=== PATIENT | male | born 1945 | race Caucasian/White ===

== ENCOUNTER 2016-07-05 18:49 | Inpatient (IN) | payer MEDICARE ==
[2016-07-05] MEDS ORDERED: ASPIRIN 81 MG CHEW PO STA (19:42)
[2016-07-05] MEDS ORDERED: NITROGLYCERIN OINT 1 INCH/GM PACKET TOPICAL STA (19:42)
[2016-07-05] MEDS ORDERED: ONDANSETRON 4 MG/2 ML VIAL IVP STA (19:42)
[2016-07-05 19:59] LABS: Basophils % (A) 0 %; CH 31.7; CHCM 33.8; Eosinophils # (A) 0.3 k/uL (0-0.7); Eosinophils % (A) 2 %; HCT 42.2 % (39.0-53.0); HDW 2.45; HGB 14.2 gm/dL (13.0-17.5); Luc # (Auto) 0.12; Luc % (Auto) 1; Lymphocytes # (A) 1.4 k/uL (1.0-4.8); Lymphocytes % (A) 12 %; MCH 31.7 pg (25.0-35.0); MCHC 33.7 g/dL (31.0-37.0); MCV 94.3 fL (80.0-100.0); Mean Platelet Volume 7.2; Monocytes # (A) 0.7 k/uL (0-1.0); Monocytes % (A) 6 %; Neutrophils # (A) 8.9 k/uL (1.3-7.7); Neutrophils % (A) 78 %; RBC 4.48 m/uL (4.30-5.90); RDW 12.9 % (11.5-15.5); WBC 11.4 k/uL (3.8-10.6); WBC (Perox) 11.66
[2016-07-05 20:09] LABS: ALT 57 U/L (21-72); AST 34 U/L (17-59); Alkaline Phosphatase 91 U/L (38-126); Anion Gap 8 mmol/L; Blood Urea Nitrogen 17 mg/dL (9-20); Carbon Dioxide 28 mmol/L (22-30); Chloride 105 mmol/L (98-107); Glucose 85 mg/dL (74-99); Non-African American GFR(MDRD) >60 (>60 ml/min/1.73 sqM); Potassium 3.9 mmol/L (3.5-5.1); Sodium 141 mmol/L (137-145); Total Bilirubin 0.8 mg/dL (0.2-1.3); Total Protein 6.3 g/dL (6.3-8.2)
[2016-07-05 20:13] LABS: Creatine Kinase 87 U/L (55-170)
[2016-07-05 20:15] LABS: Partial Thromboplastin Time 30.4 sec (22.0-30.0); Prothrombin Time 28.8 sec (9.0-12.0)
--- NOTE | 2016-07-05 20:23 | XR ---
EXAMINATION TYPE: XR chest 2V DATE OF EXAM: 07/05/2016 8:15 PM COMPARISON: 05/26/2016 HISTORY: Chest pain TECHNIQUE: Frontal and lateral views of the chest are obtained. FINDINGS: There is no heart failure nor confluent pneumonic infiltrate. There are no hilar masses. T here are chest leads. Costophrenic angles are clear. IMPRESSION: No active cardiopulmonary disease. Normal heart. No change.
[2016-07-05 20:25] LABS: Creatine Kinase MB 0.9 ng/mL (0.0-2.4); Troponin I <0.012 ng/mL (0.000-0.034)
[2016-07-05] MEDS ORDERED: ACETAMINOPHEN TAB 325 MG TAB PO PRN (20:56)
[2016-07-05] MEDS ORDERED: NITROGLYCERIN SL TABS 0.4 MG TAB SUBLINGUAL PRN (20:56)
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
[2016-07-05] MEDS: FUROSEMIDE 10 MG/ML 4 ML VIAL IV SCH (21:19)
[2016-07-05] MEDS: TAMSULOSIN 0.4 MG CAP.ER.24H PO SCH (21:19)
[2016-07-05] MEDS: WARFARIN 7.5 MG TAB PO SCH (21:30)
[2016-07-05] MEDS: METOPROLOL TARTRATE 50 MG TAB PO SCH (23:29)
[2016-07-05] MEDS: CARVEDILOL 3.125 MG TAB PO SCH (23:29)
[2016-07-06] MEDS: NITROGLYCERIN OINT 1 INCH/GM PACKET TOPICAL SCH ×4 (02:46→17:59)
[2016-07-06 02:48] LABS: Creatine Kinase 71 U/L (55-170)
[2016-07-06 03:02] LABS: Creatine Kinase MB 0.7 ng/mL (0.0-2.4); Troponin I <0.012 ng/mL (0.000-0.034)
[2016-07-06 07:50] LABS: Creatine Kinase 79 U/L (55-170)
[2016-07-06 07:58] LABS: Cholesterol 117 mg/dL (<200); HDL Cholesterol 42 mg/dL (40-60); Triglycerides 62 mg/dL (<150)
[2016-07-06 08:01] LABS: Creatine Kinase MB 0.6 ng/mL (0.0-2.4); Troponin I <0.012 ng/mL (0.000-0.034)
[2016-07-06] MEDS: METOPROLOL TARTRATE 50 MG TAB PO SCH ×3 (08:04→21:26)
[2016-07-06] MEDS: ASPIRIN 325 MG TAB PO SCH (08:04)
[2016-07-06] MEDS: LISINOPRIL 20 MG TAB PO SCH (08:04)
[2016-07-06] MEDS: CARVEDILOL 3.125 MG TAB PO SCH ×2 (08:04→16:19)
[2016-07-06] MEDS: ATORVASTATIN 80 MG TAB PO SCH (08:05)
[2016-07-06] MEDS: POTASSIUM CHLORIDE ER 20 MEQ TAB.ER PO SCH (08:05)
[2016-07-06] MEDS: FUROSEMIDE 10 MG/ML 4 ML VIAL IV SCH ×2 (08:05→21:26)
[2016-07-06] MEDS: CALCIUM CARBONATE 500 MG CHEWABLE PO SCH (12:55)
[2016-07-06] MEDS: MULTIVITAMINS, THERA 1 EACH TAB PO SCH (12:55)
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
[2016-07-06 16:41] LABS: INR 2.7 (<1.1); Prothrombin Time 25.9 sec (9.0-12.0)
[2016-07-06] MEDS: WARFARIN 7.5 MG TAB PO SCH (18:00)
[2016-07-06] MEDS: TAMSULOSIN 0.4 MG CAP.ER.24H PO SCH (21:26)
[2016-07-07] MEDS: NITROGLYCERIN OINT 1 INCH/GM PACKET TOPICAL SCH ×3 (01:59→16:14)
[2016-07-07 07:38] LABS: Basophils % (A) 0 %; CH 31.3; CHCM 32.6; Eosinophils # (A) 0.2 k/uL (0-0.7); Eosinophils % (A) 3 %; HDW 2.43; HGB 15.1 gm/dL (13.0-17.5); Luc # (Auto) 0.18; Luc % (Auto) 2; Lymphocytes # (A) 1.2 k/uL (1.0-4.8); Lymphocytes % (A) 15 %; MCH 31.6 pg (25.0-35.0); MCHC 32.7 g/dL (31.0-37.0); MCV 96.6 fL (80.0-100.0); Mean Platelet Volume 6.8; Monocytes # (A) 0.5 k/uL (0-1.0); Monocytes % (A) 7 %; Neutrophils % (A) 73 %; RBC 4.76 m/uL (4.30-5.90); WBC 8.2 k/uL (3.8-10.6); WBC (Perox) 8.48
[2016-07-07 07:46] LABS: INR 3.6 (<1.1); Prothrombin Time 35.5 sec (9.0-12.0)
[2016-07-07 07:50] LABS: Anion Gap 9 mmol/L; Blood Urea Nitrogen 18 mg/dL (9-20); Calcium 8.6 mg/dL (8.4-10.2); Carbon Dioxide 29 mmol/L (22-30); Chloride 106 mmol/L (98-107); Glucose 85 mg/dL (74-99); Non-African American GFR(MDRD) >60 (>60 ml/min/1.73 sqM); Potassium 4.1 mmol/L (3.5-5.1); Sodium 144 mmol/L (137-145)
[2016-07-07] MEDS ORDERED: SODIUM CHLORIDE 0.9% 1,000 ML IV SCH ×2 (12:15→14:45)
[2016-07-07] MEDS: LISINOPRIL 20 MG TAB PO SCH (12:39)
[2016-07-07] MEDS: MAGNESIUM OXIDE 400 MG TAB PO SCH (12:39)
[2016-07-07] MEDS: ATORVASTATIN 80 MG TAB PO SCH (12:39)
[2016-07-07] MEDS: SPIRONOLACTONE 25 MG TAB PO SCH (12:39)
[2016-07-07] MEDS: SOTALOL 80 MG TAB PO SCH ×2 (12:39→21:51)
[2016-07-07] MEDS: CALCIUM CARBONATE 500 MG CHEWABLE PO SCH (12:39)
[2016-07-07] MEDS: MULTIVITAMINS, THERA 1 EACH TAB PO SCH (12:39)
--- NOTE | 2016-07-07 12:46 | P.PN ---
Subjective Principal diagnosis: Chest pain Patient is a 71-year-old male, patient of Dr. Asher Murcia in the outpatient setting, with medical history significant for chronic atrial fibrillation/flutter with previous cardioversion, coronary artery disease with stent placement 3, hyperlipidemia, hypertension, systolic heart failure, osteoarthritis, BPH, and myocardial infarction in 2013. Patient presenting to the emergency department with complaints of acute chest pain that started around 6 PM while patient was sitting down. Patient describes chest pain as pressure, radiating to his bilateral arms and neck, associated with shortness of breath, nausea, lightheadedness, and dizziness. According to patient, he is scheduled for cardioversion next week by Dr. Michaels. Patient states he had a negative stress test one week ago. Chest x-ray in the emergency department negative for acute cardiopulmonary process. EKG with evidence of atrial fibrillation with rapid ventricular response heart rate 103. Troponins negative 3. INR 2.5. 07/07/2016: Patient is feeling well. Denies chills, fevers, nausea, vomiting, shortness of breath, chest pain, abdominal pain, numbness or tingling. Patient is urinating without difficulty. INR 3.6. Afebrile. Hemodynamically stable. Objective - Vital Signs Vital signs: Vital Signs Temp 97.5 F L 07/07/16 08:00 Pulse 61 07/07/16 08:00 Resp 16 07/07/16 08:00 BP 118/65 07/07/16 08:00 Pulse Ox 92 L 07/07/16 08:00 Intake & Output 07/06/16 07/07/16 07/07/16 18:59 06:59 18:59 Intake Total 200 Balance 200 Weight 124.5 kg Intake: Oral 200 Other: Voiding Method Toilet Toilet Toilet # Voids 0 - Exam GENERAL: Pt awake and alert, well-appearing, well-nourished, and in no acute distress. HEAD: Atraumatic, normocephalic. EYES: Pupils equal and round. ENT: Moist mucous membranes. NECK:Supple without lymphadenopathy or JVD. LUNGS: Breath sounds clear to auscultation bilaterally. HEART: Heart S1, S2, no S3 or S4. Irregularly irregular. No murmurs, rubs or gallops. ABDOMEN: Soft, obese, nontender, nondistended, normoactive bowel sounds. No guarding, no rebound. No masses or organomegaly appreciated. EXTREMITIES: 1+ peripheral pulses. 1+ edema to bilateral lower extremities. No calf tenderness. NEUROLOGICAL: Pt oriented x 3. Cranial nerves II through XII grossly intact. Strength and sensation grossly intact. PSYCH: Normal mood, normal affect. SKIN: Warm, dry, intact. Normal turgor. No rashes or lesions. - Labs CBC & Chem 7: 07/07/16 06:57 07/07/16 06:57 Labs: Abnormal Lab Results - Last 24 Hours (Table) 07/06/16 07/07/16 Range/Units 07:03 06:57 PT 25.9 H 35.5 H (9.0-12.0) sec Assessment and Plan Plan: Impression and plan: 1. Chest pain, present on admission. Cardiology consult in place, recommendations pending. Continue cardiac monitoring. 2. Persistent atrial fibrillation. Continue Coumadin for anticoagulation. INR therapeutic at 3.5. 3. Systolic congestive heart failure. Last echocardiogram with EF between 45- 50%. Continue Imdur. Continue Lasix and supplement potassium. 3. Coronary artery disease with stent placement 3. Continue aspirin and Plavix. 4. Hyperlipidemia. Continue Lipitor. 5. Hypertension. Continue lisinopril. Continue metoprolol. 6. History of myocardial infarction. 7. History of skin cancer. 8. History of nicotine dependence. 9. History of remote EtOH consumption. 9. BPH. Continue Flomax. The above impression and plan have been discussed and directed by Dr. Murcia. Germaine MEEKS acting as scribe for Dr. Murcia.
--- NOTE | 2016-07-07 13:43 | CONS ---
DATE OF CONSULTATION: This is a patient of Dr. Murcia and Dr. Lamb who presented with chest discomfort that lasted for about 10 minutes or so across his chest. He has also been complaining of increasing shortness of breath. His 3 sets of cardiac enzymes have been normal. EKG showed atrial fibrillation. He is awaiting electrical cardioversion in early July. Past history of atrial fibrillation, status post cardioversion, he remained in sinus rhythm only for 14 days. He has very symptomatic atrial fibrillation and cannot even walk up to his mailbox without having to stop numerous times, but he is in normal rhythm. He has good amount of energy and does not complain of shortness of breath. He recently underwent a stress test by Dr. Lamb after he got discharged in May and I spoke to Dr. Lamb. The stress test was normal. He has known past history of known coronary artery disease, status post coronary stenting of the distal RCA in the past. He also has hypertension. He is on Zestril. REVIEW OF SYSTEMS: No fever, chills, rigors. No cough or expectoration. No nausea, vomiting or diarrhea. No hematuria or dysuria. No strokes or seizures. No skin lesions or musculoskeletal complaints. ALLERGIES: No known drug allergies. PAST SURGICAL HISTORY: Cardiac catheterization. Labs were reviewed. His hemoglobin is normal, white count is normal. Electrolytes are normal. Potassium is normal, cardiac enzymes are normal. Magnesium is 2.0. A 12-lead ECG shows atrial fibrillation with a mildly increased heart rate at rest. Medications are reviewed. He is taking metoprolol and carvedilol, but he is also on appropriate treatment for coronary artery disease and atherosclerosis. IMPRESSION: 1. Chest discomfort, brief with no ST-segment abnormalities and normal cardiac enzymes x3 and a normal stress test, very recently. 2. Very symptomatic atrial fibrillation despite a reasonable rate control, persistent. 3. Coronary artery disease, status post coronary artery stenting several years back. SUGGEST: Stop carvedilol, change metoprolol to 50 mg twice a day, start sotalol 80 mg twice a day, monitor on telemetry for the next 3 to 5 days while on sotalol. Tomorrow, cardioversion will be performed by Dr. Lamb. Slow-Mag and Aldactone have been added. Aspirin 81 mg a day, continue statins and continue lisinopril. Nitro paste has been discontinued. Continue Coumadin. His INR's are therapeutic.
[2016-07-07] MEDS: ASPIRIN 325 MG TAB PO SCH (16:13)
[2016-07-07] MEDS: METOPROLOL TARTRATE 50 MG TAB PO SCH ×2 (16:13→21:51)
[2016-07-07] MEDS: CARVEDILOL 3.125 MG TAB PO SCH (16:13)
[2016-07-07] MEDS: FUROSEMIDE 10 MG/ML 4 ML VIAL IV SCH (16:13)
[2016-07-07] MEDS: POTASSIUM CHLORIDE ER 20 MEQ TAB.ER PO SCH (16:14)
[2016-07-07] MEDS: WARFARIN 7.5 MG TAB PO SCH (18:22)
[2016-07-07] MEDS: TAMSULOSIN 0.4 MG CAP.ER.24H PO SCH (21:51)
[2016-07-08 06:24] LABS: Basophils % (A) 0 %; CH 31.8; CHCM 33.2; Eosinophils # (A) 0.3 k/uL (0-0.7); Eosinophils % (A) 4 %; HDW 2.43; Luc # (Auto) 0.14; Luc % (Auto) 2; Lymphocytes # (A) 1.3 k/uL (1.0-4.8); Lymphocytes % (A) 18 %; MCH 30.8 pg (25.0-35.0); MCHC 31.9 g/dL (31.0-37.0); MCV 96.4 fL (80.0-100.0); Mean Platelet Volume 7.1; Monocytes # (A) 0.6 k/uL (0-1.0); Monocytes % (A) 8 %; Neutrophils # (A) 5.2 k/uL (1.3-7.7); Neutrophils % (A) 69 %; RBC 4.57 m/uL (4.30-5.90); WBC 7.6 k/uL (3.8-10.6)
[2016-07-08 06:34] LABS: INR 3.9 (<1.1); Prothrombin Time 38.2 sec (9.0-12.0)
[2016-07-08 06:41] LABS: Anion Gap 9 mmol/L; Blood Urea Nitrogen 20 mg/dL (9-20); Calcium 8.7 mg/dL (8.4-10.2); Carbon Dioxide 26 mmol/L (22-30); Chloride 107 mmol/L (98-107); Glucose 86 mg/dL (74-99); Non-African American GFR(MDRD) >60 (>60 ml/min/1.73 sqM); Potassium 4.3 mmol/L (3.5-5.1); Sodium 142 mmol/L (137-145)
[2016-07-08] MEDS: BENZOCAINE SPRAY 100 APPLIC/CAN MUCOUS MEM ONE ×3 (07:23→07:34)
[2016-07-08] MEDS ORDERED: LIDOCAINE 1% INJ 10MG/ML (20 ML MDV) ONE (07:29)
[2016-07-08] MEDS ORDERED: PROPOFOL 10 MG/ML 20 ML VIAL IV ONE (07:29)
[2016-07-08] MEDS ORDERED: MIDAZOLAM 2 MG/2 ML VIAL ONE (07:29)
[2016-07-08] MEDS ORDERED: LACTATED RINGERS 1,000 ML IV ONE (07:31)
[2016-07-08] MEDS: FUROSEMIDE 40 MG TAB PO SCH (10:10)
[2016-07-08] MEDS: LISINOPRIL 20 MG TAB PO SCH (10:10)
[2016-07-08] MEDS: ATORVASTATIN 80 MG TAB PO SCH (10:10)
[2016-07-08] MEDS: ASPIRIN 81 MG CHEW PO SCH (10:10)
[2016-07-08] MEDS: MAGNESIUM OXIDE 400 MG TAB PO SCH (10:11)
[2016-07-08] MEDS: METOPROLOL TARTRATE 50 MG TAB PO SCH ×2 (10:11→23:39)
[2016-07-08] MEDS: SOTALOL 80 MG TAB PO SCH ×2 (10:12→20:25)
[2016-07-08] MEDS: SPIRONOLACTONE 25 MG TAB PO SCH (10:13)
[2016-07-08] MEDS: MULTIVITAMINS, THERA 1 EACH TAB PO SCH (12:07)
[2016-07-08] MEDS: SODIUM CHLORIDE 0.9% 1,000 ML IV SCH (12:09)
[2016-07-08] MEDS: CALCIUM CARBONATE 500 MG CHEWABLE PO SCH (12:09)
--- NOTE | 2016-07-08 13:40 | P.PN ---
Subjective Principal diagnosis: Chest pain Patient is a 71-year-old male, patient of Dr. Asher Murcia in the outpatient setting, with medical history significant for chronic atrial fibrillation/flutter with previous cardioversion, coronary artery disease with stent placement 3, hyperlipidemia, hypertension, systolic heart failure, osteoarthritis, BPH, and myocardial infarction in 2013. Patient presenting to the emergency department with complaints of acute chest pain that started around 6 PM while patient was sitting down. Patient describes chest pain as pressure, radiating to his bilateral arms and neck, associated with shortness of breath, nausea, lightheadedness, and dizziness. According to patient, he is scheduled for cardioversion next week by Dr. Michaels. Patient states he had a negative stress test one week ago. Chest x-ray in the emergency department negative for acute cardiopulmonary process. EKG with evidence of atrial fibrillation with rapid ventricular response heart rate 103. Troponins negative 3. INR 2.5. 07/07/2016: Patient is feeling well. Denies chills, fevers, nausea, vomiting, shortness of breath, chest pain, abdominal pain, numbness or tingling. Patient is urinating without difficulty. INR 3.6. Afebrile. Hemodynamically stable. 07/08/2016: Patient is evaluated on selective care unit. Patient is status post successful cardioversion and ROSEANN this morning. Patient states he feels better already. Denies chills, fevers, nausea, vomiting, shortness of breath, chest pain, abdominal pain, numbness or tingling. Patient is urinating without difficulty. INR 3.9. Afebrile. Hemodynamically stable. Objective - Vital Signs Vital signs: Vital Signs Temp 98.2 F 07/08/16 09:00 Pulse 56 L 07/08/16 11:59 Resp 16 07/08/16 11:59 BP 106/63 07/08/16 11:59 Pulse Ox 95 07/08/16 11:59 Intake & Output 07/07/16 07/08/16 07/08/16 18:59 06:59 18:59 Intake Total 120 Balance 120 Intake: Oral 120 Other: # Voids 1 # Bowel Movements 0 - Exam GENERAL: Pt awake and alert, well-appearing, well-nourished, and in no acute distress. HEAD: Atraumatic, normocephalic. EYES: Pupils equal and round. ENT: Moist mucous membranes. NECK:Supple without lymphadenopathy or JVD. LUNGS: Breath sounds clear to auscultation bilaterally. HEART: Heart S1, S2, no S3 or S4. Regular rate and rhythm. No murmurs, rubs or gallops. ABDOMEN: Soft, obese, nontender, nondistended, normoactive bowel sounds. No guarding, no rebound. No masses or organomegaly appreciated. EXTREMITIES: 1+ peripheral pulses. 1+ edema to bilateral lower extremities. No calf tenderness. NEUROLOGICAL: Pt oriented x 3. Cranial nerves II through XII grossly intact. Strength and sensation grossly intact. PSYCH: Normal mood, normal affect. SKIN: Warm, dry, intact. Normal turgor. No rashes or lesions. - Labs CBC & Chem 7: 07/08/16 05:58 07/08/16 05:58 Assessment and Plan Plan: Impression and plan: 1. Chest pain, present on admission, resolved. Cardiology consult in place, recommendations noted. Continue cardiac monitoring. 2. Persistent atrial fibrillation, present on admission, status post ROSEANN and cardioversion on 07/08/2016. Patient currently in normal sinus rhythm. Continue sotalol. Patient to remain on telemetry for next 3-5 days per cardiology while patient is on sotalol. INR 3.9. Will defer Coumadin dosing to cardiology. 3. Systolic congestive heart failure. Last echocardiogram with EF between 45- 50%. Continue Imdur. Continue Lasix and supplement potassium. 3. Coronary artery disease with stent placement 3. Continue aspirin and Plavix. 4. Hyperlipidemia. Continue Lipitor. 5. Hypertension. Continue lisinopril. Continue metoprolol. 6. History of myocardial infarction. 7. History of skin cancer. 8. History of nicotine dependence. 9. History of remote EtOH consumption. 9. BPH. Continue Flomax. The above impression and plan have been discussed and directed by Dr. Murcia. Germaine MEEKS acting as scribe for Dr. Murcia.
[2016-07-08] MEDS: WARFARIN 7.5 MG TAB PO SCH (16:39)
[2016-07-08] MEDS: TAMSULOSIN 0.4 MG CAP.ER.24H PO SCH (20:25)
[2016-07-09 07:38] LABS: Basophils % (A) 1 %; CH 31.7; CHCM 33.4; Eosinophils # (A) 0.2 k/uL (0-0.7); Eosinophils % (A) 2 %; HCT 43.9 % (39.0-53.0); HDW 2.42; HGB 14.3 gm/dL (13.0-17.5); Luc # (Auto) 0.13; Luc % (Auto) 1; Lymphocytes # (A) 1.5 k/uL (1.0-4.8); Lymphocytes % (A) 16 %; MCH 31.2 pg (25.0-35.0); MCHC 32.6 g/dL (31.0-37.0); MCV 95.6 fL (80.0-100.0); Mean Platelet Volume 7.6; Monocytes # (A) 0.7 k/uL (0-1.0); Monocytes % (A) 8 %; Neutrophils # (A) 6.3 k/uL (1.3-7.7); Neutrophils % (A) 72 %; RBC 4.59 m/uL (4.30-5.90); WBC 8.8 k/uL (3.8-10.6); WBC (Perox) 9.07
[2016-07-09 07:41] LABS: Anion Gap 10 mmol/L; Blood Urea Nitrogen 19 mg/dL (9-20); Carbon Dioxide 27 mmol/L (22-30); Chloride 104 mmol/L (98-107); Glucose 93 mg/dL (74-99); Non-African American GFR(MDRD) >60 (>60 ml/min/1.73 sqM); Potassium 4.7 mmol/L (3.5-5.1); Sodium 141 mmol/L (137-145)
[2016-07-09 07:47] LABS: INR 2.9 (<1.1)
[2016-07-09] MEDS: ATORVASTATIN 80 MG TAB PO SCH (09:56)
[2016-07-09] MEDS: LISINOPRIL 20 MG TAB PO SCH (09:56)
[2016-07-09] MEDS: FUROSEMIDE 40 MG TAB PO SCH (09:56)
[2016-07-09] MEDS: ASPIRIN 81 MG CHEW PO SCH (09:56)
[2016-07-09] MEDS: SOTALOL 80 MG TAB PO SCH ×2 (09:57→20:00)
[2016-07-09] MEDS: MAGNESIUM OXIDE 400 MG TAB PO SCH (09:57)
[2016-07-09] MEDS: SPIRONOLACTONE 25 MG TAB PO SCH (09:57)
[2016-07-09] MEDS: METOPROLOL TARTRATE 50 MG TAB PO SCH (09:57)
[2016-07-09] MEDS: SODIUM CHLORIDE 0.9% 1,000 ML IV SCH (10:21)
--- NOTE | 2016-07-09 11:01 | PN ---
Mr. Hatch is doing well. He feels a lot better. He is able to walk up and down the hallway without experiencing any shortness of breath. Yesterday he was cardioverted and he is on sotalol 80 mg twice daily. However, he is also on metoprolol 50 mg twice daily and his heart rate is in the 50s, but more importantly, the 12-lead ECG shows that his NM is fairly prolonged. Therefore, I am going to stop metoprolol today, but continue sotalol 80 mg twice daily. He denies any chest discomfort, dizziness, lightheadedness or palpitations. On telemetry prior to starting sotalol, he had a long run of nonsustained VT asymptomatic. Blood pressure 117/63 mmHg, pulse rate in the 50s and 60s, afebrile, 97 degrees Fahrenheit. Head and neck examination is normal. Breath sounds are clear. Equal air entry bilaterally. No rhonchi. No crackles. Heart sounds S1 and S2 are normal. No murmurs. No gallop. S1 is normal. S2 is normal. Abdomen is soft. He has central obesity. Extremities are warm. No edema. IMPRESSION: 1. Persistent symptomatic atrial fibrillation despite adequate rate control. The patient is anticoagulated for stroke prevention. 2. Coronary artery disease, status post coronary artery stenting several years back. Recent stress test was normal according to Dr. Lamb. 3. Nonsustained ventricular tachycardia. 4. Mild sinus bradycardia and prolonged NM interval. SUGGEST: Stop metoprolol. Continue sotalol 80 mg twice daily. I will not increase his sotalol any further. Continue spironolactone 50 mg daily. Continue magnesium oxide 400 mg daily. Continue Lasix 40 mg daily. Continue atorvastatin 80 mg daily along with aspirin and continue lisinopril 20 mg daily. Anticoagulation to continue. We will monitor him until Monday while administering sotalol and watch his ( ). His 12-lead ECG was reviewed today and his absolute QT interval is 440 and 480 ms with heart rate in the 50s. Daily labs.
[2016-07-09] MEDS: MULTIVITAMINS, THERA 1 EACH TAB PO SCH (11:23)
[2016-07-09] MEDS: CALCIUM CARBONATE 500 MG CHEWABLE PO SCH (11:23)
[2016-07-09] MEDS: WARFARIN 7.5 MG TAB PO SCH (16:58)
[2016-07-09] MEDS: TAMSULOSIN 0.4 MG CAP.ER.24H PO SCH (20:00)
--- NOTE | 2016-07-09 20:31 | PN ---
DATE OF SERVICE: 07/09/2016 I am covering for Dr. Murcia. This 71-year-old gentleman admitted with chest pain also had persistent atrial fibrillation. The patient had ROSEANN and cardioversion. The patient also had ventricular tachycardia. The patient being closely monitored. Cardiology is following the patient closely. started he patient on sotalol at this time. No chest pain. No palpitations. On exam, alert and oriented x3. Pulse is 52, blood pressure 130/59, respiratory rate 16. Temperature 97.6, pulse ox 93% on room air. HEENT: Conjunctivae normal. NECK: No jugular venous distention. CARDIOVASCULAR: S1, S2 muffled. RESPIRATORY: Breath sounds diminished at the bases. No rhonchi, no crackles. ABDOMEN: Soft, nontender. Nontender. Obese. No mass palpable. LYMPHATICS: No lymph nodes palpable in the neck, axillae or groin. CENTRAL NERVOUS SYSTEM: No focal deficits. LABS at this time: CBC within normal limits. INR 2.9. ASSESSMENT: 1. Chest pain, possible unstable angina, present on admission. 2. Atrial fibrillation with persistent status post ROSEANN and cardioversion. 3. Congestive heart failure with chronic systolic dysfunction, ejection fraction 45 to 50%. 4. Coronary artery disease, stent placement. 5. Hyperlipidemia. 6. Hypertension. 7. History of myocardial infarction. 8. History of skin cancer. 9. History of nicotine dependence. 10. Remote history of ETOH. 11. History of benign prostatic hypertrophy. 12. Coumadin monitoring. RECOMMENDATIONS AND DISCUSSION: In this 71-year-old gentleman who presented with multiple complex medical issues, we will monitor the patient closely. Continue the current medications and continue symptomatic treatment. Otherwise, recommend repeat labs. Closely follow with cardiology and continue with Betapace. Guarded prognosis because of multiple complex medical issues. Further recommendations to follow. MTDD
[2016-07-10 06:45] LABS: Basophils % (A) 0 %; CH 31.5; CHCM 31.6; Eosinophils # (A) 0.3 k/uL (0-0.7); Eosinophils % (A) 3 %; HDW 2.35; HGB 14.8 gm/dL (13.0-17.5); Luc # (Auto) 0.19; Luc % (Auto) 2; Lymphocytes # (A) 1.4 k/uL (1.0-4.8); Lymphocytes % (A) 17 %; MCH 32.2 pg (25.0-35.0); MCHC 32.2 g/dL (31.0-37.0); MCV 100.1 fL (80.0-100.0); Mean Platelet Volume 7.4; Monocytes # (A) 0.8 k/uL (0-1.0); Monocytes % (A) 9 %; Neutrophils # (A) 5.9 k/uL (1.3-7.7); Neutrophils % (A) 69 %; RDW 12.9 % (11.5-15.5); WBC 8.5 k/uL (3.8-10.6); WBC (Perox) 8.54
[2016-07-10 07:17] LABS: Anion Gap 11 mmol/L; Blood Urea Nitrogen 19 mg/dL (9-20); Carbon Dioxide 21 mmol/L (22-30); Chloride 111 mmol/L (98-107); Glucose 89 mg/dL (74-99); Magnesium 2.2 mg/dL (1.6-2.3); Non-African American GFR(MDRD) >60 (>60 ml/min/1.73 sqM); Potassium 4.5 mmol/L (3.5-5.1); Sodium 143 mmol/L (137-145)
[2016-07-10] MEDS: ATORVASTATIN 80 MG TAB PO SCH (07:56)
[2016-07-10] MEDS: LISINOPRIL 20 MG TAB PO SCH (07:56)
[2016-07-10] MEDS: FUROSEMIDE 40 MG TAB PO SCH (07:56)
[2016-07-10] MEDS: ASPIRIN 81 MG CHEW PO SCH (07:56)
[2016-07-10] MEDS: SPIRONOLACTONE 25 MG TAB PO SCH (07:57)
[2016-07-10] MEDS: SOTALOL 80 MG TAB PO SCH ×2 (07:57→21:10)
[2016-07-10] MEDS: MAGNESIUM OXIDE 400 MG TAB PO SCH (07:57)
[2016-07-10 09:47] LABS: INR 2.3 (<1.1)
[2016-07-10] MEDS: SODIUM CHLORIDE 0.9% 1,000 ML IV SCH (10:19)
[2016-07-10] MEDS: CALCIUM CARBONATE 500 MG CHEWABLE PO SCH (12:02)
[2016-07-10] MEDS: MULTIVITAMINS, THERA 1 EACH TAB PO SCH (12:02)
--- NOTE | 2016-07-10 14:16 | PN ---
Mr. Asher Hatch is a 71-year-old male patient with known coronary artery disease, status post stenting in the past who presented with very symptomatic atrial fibrillation and some chest discomfort. He underwent electrical cardioversion. I started him on sotalol. Subsequently, I had to stop metoprolol because of bradycardia and prolonged ND interval and continue sotalol 80 mg twice daily. Yesterday his QT interval was within normal limits. Today his QT interval definitely appears prolonged and his about absolute QT interval was around 500 to 520 ms. Current QT interval is shorter but the GT interval definitely appears long. He has not had any ventricular arrhythmias after starting sotalol, however, before starting sotalol he did have a long run of nonsustained VT. On examination, his blood pressure is 133/65 mmHg. His respirations are normal. His pulse rate is in the 50s. He is afebrile, 97.1 degrees Fahrenheit. Head and neck examination is normal. Heart sounds are normal. Lungs are clear on auscultation. EXTREMITIES: Warm. No edema. IMPRESSION: 1. Persistent symptomatic atrial fibrillation. He has failed electrical cardioversion in the past, underwent repeat electrical cardioversion, sotalol maintained sinus rhythm. 2. Sick sinus syndrome with sinus bradycardia, necessitating discontinuation of beta blockers. 3. Slight prolongation of the QT interval on sotalol 80 mg twice daily. Therefore the dose of sotalol is being reduced to 40 mg twice daily. 4. Known coronary artery disease, status post coronary stenting and long run of nonsustained ventricular tachycardia prior to starting sotalol. SUGGEST: Low dose sotalol 40 mg twice daily. I will not increase any further. He will continue spironolactone and Slow-Mag. I think this gentleman will need a pacemaker just because his bradycardia. He understands that this will have no impact on his atrial fibrillation and he has very symptomatic atrial fibrillation and therefore an atrial fibrillation should definitely be considered.
[2016-07-10] MEDS: WARFARIN 7.5 MG TAB PO SCH (17:46)
--- NOTE | 2016-07-10 19:27 | PN ---
I am covering for Dr. Murcia. DATE OF SERVICE: 07/10/2016 This 71-year-old gentleman who was admitted with atrial fibrillation. Also had ROSEANN and cardioversion. Dr. Michaels from the cardiology is following the patient closely. Recommended was thought to have sick sinus syndrome or sinus bradycardia. The patient was being monitored and sotalol dose has been adjusted. The possible EP studies and pacemaker also being considered by Dr. Michaels. No chest pain. No palpitation. No fever at this time. On exam, alert and oriented times three. Pulse 59, blood pressure 133/64, respirations 18, temperature 97.1, pulse ox 97% on room air. HEENT: Conjunctivae normal. NECK: No jugular venous distention. CARDIOVASCULAR: S1, S2 muffled. RESPIRATORY: Breath sounds diminished at the bases. No rhonchi. No crackles. ABDOMEN: Soft. Obese, nontender. EXTREMITIES: Legs no edema. Nervous system: No focal deficits. Labs CBC within normal limits. INR 2.3. ASSESSMENT: 1. Chest pain, possible unstable angina, present on admission. 2. Atrial fibrillation persistent status post ROSEANN and cardioversion. 3. Congestive heart failure with chronic systolic dysfunction, ejection fraction 45% to 50%. 4. Coronary artery disease, stent placement. 5. Hyperlipidemia. 6. Hypertension. 7. History of myocardial infarction. 8. History of skin cancer. 9. History of nicotine dependence. 10. Remote history of ETOH. 11. History of benign prostatic hypertrophy. 12. Coumadin monitoring. RECOMMENDATIONS AND DISCUSSION: In this 71-year-old gentleman who presented with multiple complex medical issues, we will monitor the patient closely. Continue the current medications and continue with antiarrhythmic agents. Closely follow with cardiology. Further recommendations regarding EP studies per Cardiology. Discussed with the patient. Prognosis guarded and Dr. Murcia will follow. [facility]
[2016-07-10] MEDS: TAMSULOSIN 0.4 MG CAP.ER.24H PO SCH (21:10)
[2016-07-11 07:09] LABS: Basophils % (A) 0 %; CH 31.6; CHCM 32.9; Eosinophils # (A) 0.3 k/uL (0-0.7); Eosinophils % (A) 3 %; HDW 2.35; HGB 14.2 gm/dL (13.0-17.5); Luc % (Auto) 3; Lymphocytes # (A) 1.3 k/uL (1.0-4.8); Lymphocytes % (A) 16 %; MCH 31.3 pg (25.0-35.0); MCHC 32.4 g/dL (31.0-37.0); MCV 96.5 fL (80.0-100.0); Mean Platelet Volume 6.7; Monocytes # (A) 0.6 k/uL (0-1.0); Monocytes % (A) 8 %; Neutrophils # (A) 5.8 k/uL (1.3-7.7); Neutrophils % (A) 71 %; RBC 4.56 m/uL (4.30-5.90); RDW 12.9 % (11.5-15.5); WBC 8.2 k/uL (3.8-10.6); WBC (Perox) 8.58
[2016-07-11 07:14] LABS: INR 2.2 (<1.1); Prothrombin Time 21.1 sec (9.0-12.0)
[2016-07-11 07:25] LABS: Anion Gap 8 mmol/L; Blood Urea Nitrogen 17 mg/dL (9-20); Calcium 9.2 mg/dL (8.4-10.2); Carbon Dioxide 29 mmol/L (22-30); Chloride 106 mmol/L (98-107); Glucose 85 mg/dL (74-99); Non-African American GFR(MDRD) >60 (>60 ml/min/1.73 sqM); Potassium 4.5 mmol/L (3.5-5.1); Sodium 143 mmol/L (137-145)
[2016-07-11] MEDS: LISINOPRIL 20 MG TAB PO SCH (09:37)
[2016-07-11] MEDS: SPIRONOLACTONE 25 MG TAB PO SCH (09:38)
[2016-07-11] MEDS: SOTALOL 80 MG TAB PO SCH ×2 (09:38→20:15)
[2016-07-11] MEDS: MULTIVITAMINS, THERA 1 EACH TAB PO SCH (09:38)
[2016-07-11] MEDS: SODIUM CHLORIDE 0.9% 1,000 ML IV SCH (09:39)
[2016-07-11] MEDS: ASPIRIN 81 MG CHEW PO SCH (09:39)
[2016-07-11] MEDS: CALCIUM CARBONATE 500 MG CHEWABLE PO SCH (09:39)
[2016-07-11] MEDS: MAGNESIUM OXIDE 400 MG TAB PO SCH (09:39)
[2016-07-11] MEDS: ATORVASTATIN 80 MG TAB PO SCH (09:39)
[2016-07-11] MEDS: FUROSEMIDE 40 MG TAB PO SCH (09:39)
--- NOTE | 2016-07-11 10:21 | P.PN ---
Subjective Principal diagnosis: Chest pain Patient is a 71-year-old male, patient of Dr. Asher Murcia in the outpatient setting, with medical history significant for chronic atrial fibrillation/flutter with previous cardioversion, coronary artery disease with stent placement 3, hyperlipidemia, hypertension, systolic heart failure, osteoarthritis, BPH, and myocardial infarction in 2013. Patient presenting to the emergency department with complaints of acute chest pain that started around 6 PM while patient was sitting down. Patient describes chest pain as pressure, radiating to his bilateral arms and neck, associated with shortness of breath, nausea, lightheadedness, and dizziness. According to patient, he is scheduled for cardioversion next week by Dr. Michaels. Patient states he had a negative stress test one week ago. Chest x-ray in the emergency department negative for acute cardiopulmonary process. EKG with evidence of atrial fibrillation with rapid ventricular response heart rate 103. Troponins negative 3. INR 2.5. 07/07/2016: Patient is feeling well. Denies chills, fevers, nausea, vomiting, shortness of breath, chest pain, abdominal pain, numbness or tingling. Patient is urinating without difficulty. INR 3.6. Afebrile. Hemodynamically stable. 07/08/2016: Patient is evaluated on selective care unit. Patient is status post successful cardioversion and ROSEANN this morning. Patient states he feels better already. Denies chills, fevers, nausea, vomiting, shortness of breath, chest pain, abdominal pain, numbness or tingling. Patient is urinating without difficulty. INR 3.9. Afebrile. Hemodynamically stable. 07/11/2016: Patient is evaluated on selective care unit. Patient is feeling well. Denies dizziness, lightheadedness, nausea, vomiting, shortness of breath , or chest pain. Patient has been started on sotalol which is maintaining sinus rhythm. Beta blockers have been discontinued secondary to sinus bradycardia. Per cardiology note, patient may need a pacemaker secondary to episodes of bradycardia. Labs reviewed and stable. INR 2.2. Patient remains on Coumadin. Afebrile. Hemodynamically stable. Objective - Vital Signs Vital signs: Vital Signs Temp 97.4 F L 07/11/16 04:00 Pulse 62 07/11/16 08:00 Resp 17 07/11/16 08:00 BP 123/71 07/11/16 08:00 Pulse Ox 93 L 07/11/16 08:00 Intake & Output 07/10/16 07/11/16 07/11/16 18:59 06:59 18:59 Intake Total 600 1680 Output Total 500 Balance 100 1680 Weight 122.3 kg Intake: Intake, IV Titration 0 Amount Sodium Chloride 0.9% 1, 0 000 ml @ 20 mls/hr IV . Q24H LILIANA Rx#:[id number] Oral 600 1680 Output: Urine 500 Other: Voiding Method Toilet # Voids 2 4 - Exam GENERAL: Pt awake and alert, well-appearing, well-nourished, and in no acute distress. HEAD: Atraumatic, normocephalic. EYES: Pupils equal and round. ENT: Moist mucous membranes. NECK:Supple without lymphadenopathy or JVD. LUNGS: Breath sounds clear to auscultation bilaterally. HEART: Heart S1, S2, no S3 or S4. Regular rate and rhythm. No murmurs, rubs or gallops. ABDOMEN: Soft, obese, nontender, nondistended, normoactive bowel sounds. No guarding, no rebound. No masses or organomegaly appreciated. EXTREMITIES: 1+ peripheral pulses. No edema to bilateral lower extremities. No calf tenderness. NEUROLOGICAL: Pt oriented x 3. Cranial nerves II through XII grossly intact. Strength and sensation grossly intact. PSYCH: Normal mood, normal affect. SKIN: Warm, dry, intact. Normal turgor. No rashes or lesions. - Labs CBC & Chem 7: 07/11/16 06:43 07/11/16 06:43 Labs: Abnormal Lab Results - Last 24 Hours (Table) 07/11/16 Range/Units 06:43 PT 21.1 H (9.0-12.0) sec Assessment and Plan Plan: Impression and plan: 1. Chest pain, present on admission, resolved. Cardiology consult in place, recommendations noted. Continue cardiac monitoring. 2. Persistent atrial fibrillation, present on admission, status post ROSEANN and cardioversion on 07/08/2016. Patient currently in normal sinus rhythm. Continue sotalol. 3. Systolic congestive heart failure. Last echocardiogram with EF between 45- 50%. Continue Imdur. Continue Lasix and Aldactone. 4. Sick sinus syndrome with sinus bradycardia. Beta blockers a been discontinued. Per cardiology, patient will need pacemaker. 3. Coronary artery disease with stent placement 3. Continue aspirin. 4. Hyperlipidemia. Continue Lipitor. 5. Hypertension. Continue lisinopril. 6. History of myocardial infarction. 7. History of skin cancer. 8. History of nicotine dependence. 9. History of remote EtOH consumption. 9. BPH. Continue Flomax. Discharge plan: Possibly within next 24 hours, will look for cardiology recommendations. The above impression and plan have been discussed and directed by Dr. Murcia. Germaine MEEKS acting as scribe for Dr. Murcia.
--- NOTE | 2016-07-11 17:16 | PN ---
Asher Hatch is doing well. He is walking around in the hallways. His breathing is a lot better. His energy level is better. He has no chest discomfort. No dizziness or lightheadedness. His heart rates are in the 50s after stopping metoprolol succinate completely and reducing sotalol to 40 mg twice daily. His QT interval definitely has reduced by at least 40 to 60 ms after reducing the sotalol dose from 80 to 40 mg twice daily. His blood pressure is 117/66 mmHg and 134/65 mmHg. Respirations are normal. Breath sounds are normal. No rhonchi. No crackles. Heart sounds S1, S2 are normal ( ). Extremities are warm. No edema. No JVD. IMPRESSION: 1. Persistent symptomatic atrial fibrillation, status post electrical cardioversion, currently on sotalol 40 mg twice daily. The QT interval was greater than 500 ms on 80 mg twice daily; hence the dose was reduced. He is also on anticoagulation. 2. Sick sinus syndrome with sinus bradycardia necessitating discontinuation of metoprolol. 3. Sotalol 40 mg twice daily is being administered. The QT interval is about 480 ms now. 4. Known coronary disease, status post coronary artery stenting. Patient was admitted with chest discomfort that lasted for 10 to 15 minutes without any clear-cut evidence for myocardial injury and long runs of non-sustained ventricular tachycardia. SUGGEST: Continue sotalol 40 mg twice daily. Continue anticoagulation. Continue Slow-Mag and spironolactone. I had a very detailed discussion with the patient, his daughter and his . After he gets discharged, as long as his QT interval is stable, we will follow the following sequence of management: 1. I have spoken to Dr. Lamb regarding coronary angiography. I would wait for about a month, since he was just electrically cardioverted and we do not want to stop his anticoagulation now. 2. Subsequently I would proceed with a dual-chamber pacemaker implantation for him. 3. Thereafter, an atrial fibrillation ablation should be considered, since he has very symptomatic atrial fibrillation and cannot tolerate even small doses of sotalol without QT prolongation. The other option is amiodarone.
[2016-07-11] MEDS: WARFARIN 7.5 MG TAB PO SCH (17:27)
[2016-07-11] MEDS: TAMSULOSIN 0.4 MG CAP.ER.24H PO SCH (20:14)
[2016-07-12] MEDS: SODIUM CHLORIDE 0.9% 1,000 ML IV SCH (05:48)
[2016-07-12 06:27] LABS: Basophils % (A) 0 %; CH 31.8; CHCM 33.3; Eosinophils # (A) 0.2 k/uL (0-0.7); Eosinophils % (A) 3 %; HCT 45.5 % (39.0-53.0); HDW 2.36; HGB 14.6 gm/dL (13.0-17.5); Luc # (Auto) 0.22; Luc % (Auto) 3; Lymphocytes # (A) 1.5 k/uL (1.0-4.8); Lymphocytes % (A) 19 %; MCH 30.8 pg (25.0-35.0); MCHC 32.2 g/dL (31.0-37.0); MCV 95.8 fL (80.0-100.0); Mean Platelet Volume 6.7; Monocytes # (A) 0.6 k/uL (0-1.0); Monocytes % (A) 8 %; Neutrophils # (A) 5.5 k/uL (1.3-7.7); Neutrophils % (A) 68 %; RBC 4.74 m/uL (4.30-5.90); WBC 8.2 k/uL (3.8-10.6)
[2016-07-12 06:33] LABS: INR 2.3 (<1.1); Prothrombin Time 22.1 sec (9.0-12.0)
[2016-07-12 06:36] LABS: Anion Gap 9 mmol/L; Blood Urea Nitrogen 18 mg/dL (9-20); Calcium 9.3 mg/dL (8.4-10.2); Carbon Dioxide 27 mmol/L (22-30); Chloride 106 mmol/L (98-107); Glucose 88 mg/dL (74-99); Non-African American GFR(MDRD) >60 (>60 ml/min/1.73 sqM); Potassium 4.6 mmol/L (3.5-5.1); Sodium 142 mmol/L (137-145)
[2016-07-12] MEDS: ASPIRIN 81 MG CHEW PO SCH (09:26)
[2016-07-12] MEDS: ATORVASTATIN 80 MG TAB PO SCH (09:26)
[2016-07-12] MEDS: MAGNESIUM OXIDE 400 MG TAB PO SCH (09:26)
[2016-07-12] MEDS: FUROSEMIDE 40 MG TAB PO SCH (09:26)
[2016-07-12] MEDS: LISINOPRIL 20 MG TAB PO SCH (09:26)
[2016-07-12] MEDS: SPIRONOLACTONE 25 MG TAB PO SCH (09:28)
[2016-07-12] MEDS: SOTALOL 80 MG TAB PO SCH (09:28)
[2016-07-12 11:17] VITALS: BP 123/61; PULSE 55; RESP 22; TEMP 97.1
[2016-07-12] MEDS: CALCIUM CARBONATE 500 MG CHEWABLE PO SCH (13:04)
[2016-07-12] MEDS: MULTIVITAMINS, THERA 1 EACH TAB PO SCH (13:04)
--- NOTE | 2016-07-12 13:25 | P.PN ---
Progress Note - Text Patient is doing well. No dizziness no lightheadedness no chest discomfort no palpitations. His energy level has improved significantly after maintaining sinus rhythm I started him on sotalol 80 mg twice daily and he underwent electrical cardioversion thereafter successfully by Dr. Peguero He is on adequate granulation with Coumadin INRs have been therapeutic Prior to that he had a run of nonsustained ventricular tachycardia and is fairly long and he has known left ventricular ejection fraction of 45-50% with inferior basal wall motion automatically related to an old OR. Hence I chose sotalol rather than dofetilide However he was quite bradycardic and had a prolonged MI interval and therefore metoprolol succinate was discontinued despite the fact that he has cardio myopathy, ischemic in nature Recent stress test did not show any evidence for ischemia in June. In addition his absolute QT interval on sotalol was prolonged and just above 500 ms there the dose was reduced to 40 mg twice daily. Despite that he has maintained sinus rhythm On examination He is afebrile 97.1, pulse rate 55, respirations 18, blood pressure 123/61 mmHg Heart sounds are normal and regular No murmurs no gallops Breath sounds are normal no rhonchi no crackles Abdomen soft nontender Extremities are warm no edema Impression Persistent symptomatic atrial fibrillation with significant shortness of breath and tiredness and fatigue Significant improvement in energy level after electrical cardioversion despite the fact that he is bradycardic Absolute QT interval of about 500-520, on sotalol 80 mg twice day Sotalol dose reduced to 80 mg twice daily Coronary artery disease, old inferior basal OR Long episode of nonsustained VT on telemetry, documented No evidence for ischemia on stress testing Sinus bradycardia necessitating discontinuation of metoprolol succinate Prolonged MI interval of about 300 ms even on sotalol 40 mg grams twice daily Plan Discharge home today on sotalol 80 mg twice daily. QT interval is less than 480 ms No metoprolol succinate for now Continue anticoagulation with Coumadin Continue aspirin and atorvastatin Continue Lasix 40 mg daily along with lisinopril 20 mg daily and magnesium oxide 400 mg daily Continue spironolactone 50 mg daily Plan I had a detailed discussion with the patient and his and daughter Patient needs a permanent pacemaker because his MI interval was prolonged and he has significant sinus bradycardia on minimal doses of sotalol for AF management This is occurred despite stopping metoprolol I would implant a dual-chamber pacemaker but within ICD lead, since he has a long run of nonsustained ventricular tachycardia as well as mild ischemic cardio myopathy with inferior basal akinesis I will also schedule him for any of ablation afterwards It is quite likely this sotalol in such a small dose will not maintains sinus rhythm. He is very symptomatic during atrial fibrillation and benefits significantly from sinus rhythm in terms of his quality of life If he fails sotalol I will use amiodarone, not dofetilide, in small doses I will schedule his dual-chamber pacemaker with ICD lead instead of pacing lead within the month
--- NOTE | 2016-07-12 15:01 | P.DS ---
Providers Date of admission: 07/08/16 10:39 Expected date of discharge: 07/12/16 Attending physician: Asher Murcia Consults: Cardiology service Primary care physician: Asher Murcia [facility] Course: Patient is a 71-year-old male, patient of Dr. Asher Murcia in the outpatient setting, with medical history significant for chronic atrial fibrillation/flutter with previous failed cardioversion, coronary artery disease with stent placement 3, hyperlipidemia, hypertension, systolic heart failure, osteoarthritis, BPH, myocardial infarction in 2013, and negative stress test one week prior to admission. Patient presenting to the emergency department with complaints of acute chest pain. EKG on admission with evidence of atrial fibrillation with rapid ventricular response. Troponins negative 3. Patient was evaluated by Dr. Michaels from cardiology service and underwent successful cardioversion and ROSEANN. Patient had no further episodes of dizziness , lightheadedness, chest discomfort, or palpitations during hospital stay. Patient was started on sotalol 40 mg by mouth twice a day and metoprolol was discontinued secondary bradycardia. Per cardiology recommendations, patient will need a dual-chamber pacemaker with ICD lead within the next month followed by ablation at a later date. Patient was deemed stable for discharge to home with follow-up with cardiology and primary care service in the outpatient setting as directed. Discharge diagnoses: 1. Chest pain, present on admission, resolved. 2. Persistent atrial fibrillation, present on admission, status post ROSEANN and cardioversion on 07/08/2016. Patient currently in normal sinus rhythm. 3. Systolic congestive heart failure. 4. Sick sinus syndrome with sinus bradycardia. 3. Coronary artery disease with stent placement 3. 4. Hyperlipidemia. 5. Hypertension. 6. History of myocardial infarction. 7. History of skin cancer. 8. History of nicotine dependence. 9. History of remote EtOH consumption. 9. BPH. The above impression and plan have been discussed and directed by Dr. Murcia. Germaine MEEKS acting as scribe for Dr. Murcia. Pertinent Studies: Chest x-ray; EKG Procedures: ROSEANN; cardioversion Patient Condition at Discharge: Good Plan - Discharge Summary New Discharge Prescriptions: Furosemide Oral Soln [Lasix] 40 mg PO DAILY #1 cup Magnesium Oxide 400 mg PO DAILY #1 tablet Sotalol [Betapace] 40 mg PO BID #2 tablet Spironolactone [Aldactone] 50 mg PO DAILY #1 tab Discharge Medication List Atorvastatin [Lipitor] 80 mg PO DAILY 09/17/14 [History] Lisinopril [Prinivil] 20 mg PO DAILY 09/17/14 [History] Multivitamins, Thera [Multivitamin] 1 tab PO DAILY 09/17/14 [History] Aspirin 81 mg PO DAILY #30 chew 01/07/15 [Rx] Calcium 500mg 500 mg PO DAILY 05/26/16 [History] Tamsulosin HCl [Flomax] 0.4 mg PO HS 05/26/16 [History] Warfarin [Coumadin] 11.25 mg PO SUMOWETHSA 07/05/16 [History] Warfarin [Coumadin] 15 mg PO HS 07/05/16 [History] Furosemide Oral Soln [Lasix] 40 mg PO DAILY #1 cup 07/12/16 [Rx] Magnesium Oxide 400 mg PO DAILY #1 tablet 07/12/16 [Rx] Sotalol [Betapace] 40 mg PO BID #2 tablet 07/12/16 [Rx] Spironolactone [Aldactone] 50 mg PO DAILY #1 tab 07/12/16 [Rx] Follow up Appointment(s)/Referral(s): Asher Murcia DO [Primary Care Provider] - 1-2 days Ivan Lamb MD [STAFF PHYSICIAN] - 1 Week Patient Instructions/Handouts: Chest Pain (DC) Discharge Disposition: HOME SELF-CARE
--- NOTE | 2016-08-04 09:12 | ECHOT ---
DATE OF SERVICE: PROCEDURE: Transesophageal echocardiogram. INDICATION: Chronic A. fib prior to cardioversion. PROCEDURE NOTE: After obtaining informed consent, transesophageal echocardiogram was performed in left lateral position using an Omniplane probe. Local and IV sedation were obtained by the space buyer. Patient tolerated the procedure well without any immediate complications. FINDINGS: 1. There is no intracardiac thrombus within the left atrial appendage, left atrium, right atrium or right ventricle. 2. Ejection fraction is mildly diminished at 45%. 3. There is mild mitral and trace aortic regurgitation noted. 4. There is no evidence of shunting across the interatrial septum. CONCLUSION: No intracardiac thrombus. PLAN: Patient will undergo electrical cardioversion.
--- NOTE | 2016-08-04 09:15 | CE ---
DATE OF SERVICE: PROCEDURE: Cardioversion. After obtaining informed consent, patient was anesthetized by the licensed insurance sales agent and underwent cardioversion with 200 joules of DC current and following a single shock, converted to sinus rhythm and stayed in sinus rhythm.
== END 2016-07-12 15:44 | disposition home or self-care (01) | DRG 309 ==
LOC: EC 18:49 → 3OBS 20:56 → 6SEL 07-07 15:10 → OBSVTOIN 07-08 10:39
PROVIDERS: ADMIT Family Medicine; ATTEND Family Medicine
PROC: B246ZZ4 Ultrasonography of Right and Left Heart, Transesophageal (ICD-10-PCS; 2016-07-08)
PROC: 5A2204Z Restoration of Cardiac Rhythm, Single (ICD-10-PCS; principal; 2016-07-08 07:30)
DX: I48.1 Persistent atrial fibrillation (principal); I25.110 Atherosclerotic heart disease of native coronary artery with unstable angina pectoris; I50.22 Chronic systolic (congestive) heart failure; I47.2 Ventricular tachycardia; I49.5 Sick sinus syndrome; I10 Essential (primary) hypertension; E78.5 Hyperlipidemia, unspecified; E66.9 Obesity, unspecified; I25.2 Old myocardial infarction; I25.5 Ischemic cardiomyopathy; I48.2 Chronic atrial fibrillation; N40.0 Benign prostatic hyperplasia without lower urinary tract symptoms; M19.90 Unspecified osteoarthritis, unspecified site; K57.90 Diverticulosis of intestine, part unspecified, without perforation or abscess without bleeding; Z79.01 Long term (current) use of anticoagulants; Z79.82 Long term (current) use of aspirin; Z79.899 Other long term (current) drug therapy; Z85.828 Personal history of other malignant neoplasm of skin; Z95.5 Presence of coronary angioplasty implant and graft; Z87.891 Personal history of nicotine dependence; Z68.38 Body mass index [BMI] 38.0-38.9, adult; Z82.49 Family history of ischemic heart disease and other diseases of the circulatory system
CPT/HCPCS: 36415; 71020; 80048; 80053; 80061; 82550; 82553; 83735; 83880; 84443; 84484; 85025; 85610; 85730; 92960; 93005; 93312; 93320; 93325; 96374; 96375; 96376; 99152; 99285

== ENCOUNTER 2016-08-18 08:19 | Day surgery (SDC) | payer MEDICARE ==
[2016-08-17 15:35] VITALS: BMI 37.3
[~2016-08-18 08:19] MED LIST: ceFAZolin 1,000 MG in SODIUM CHLORIDE 0.9% IRRIGATIO 250 ML IRRIGATION ONE; ceFAZolin 2 GM in SODIUM CHLORIDE 0.9% 100 ML IVPB ONE
[2016-08-18 08:55] LABS: Basophils % (A) 1 %; CH 32.1; CHCM 34.7; Eosinophils # (A) 0.2 k/uL (0-0.7); Eosinophils % (A) 3 %; HCT 44.9 % (39.0-53.0); HGB 15.5 gm/dL (13.0-17.5); Luc # (Auto) 0.19; Luc % (Auto) 3; Lymphocytes # (A) 1.3 k/uL (1.0-4.8); Lymphocytes % (A) 18 %; MCH 32.2 pg (25.0-35.0); MCHC 34.6 g/dL (31.0-37.0); MCV 93.1 fL (80.0-100.0); Mean Platelet Volume 7.1; Monocytes # (A) 0.4 k/uL (0-1.0); Monocytes % (A) 6 %; Neutrophils # (A) 5.1 k/uL (1.3-7.7); Neutrophils % (A) 70 %; RBC 4.83 m/uL (4.30-5.90); RDW 12.7 % (11.5-15.5); WBC 7.4 k/uL (3.8-10.6); WBC (Perox) 7.42
[2016-08-18 08:56] LABS: INR 2.4 (<1.1); Prothrombin Time 22.7 sec (9.0-12.0)
[2016-08-18] MEDS: SODIUM CHLORIDE 0.9% 1,000 ML IV SCH (08:56)
[2016-08-18 09:14] LABS: Anion Gap 11 mmol/L; Blood Urea Nitrogen 20 mg/dL (9-20); Calcium 9.6 mg/dL (8.4-10.2); Carbon Dioxide 28 mmol/L (22-30); Chloride 105 mmol/L (98-107); Glucose 92 mg/dL (74-99); Non-African American GFR(MDRD) >60 (>60 ml/min/1.73 sqM); Potassium 4.2 mmol/L (3.5-5.1); Sodium 144 mmol/L (137-145)
[2016-08-18] MEDS ORDERED: IODIXANOL 320 MG/ML 100 ML IV ONE (10:10)
[2016-08-18] MEDS ORDERED: MIDAZOLAM 2 MG/2 ML VIAL ONE (10:31)
[2016-08-18] MEDS ORDERED: MIDAZOLAM 2 MG/2 ML VIAL IVP ONE (10:32)
[2016-08-18] MEDS ORDERED: LIDOCAINE 2% INJ 20 MG/ML SQ ONE (10:41)
[2016-08-18] MEDS ORDERED: fentaNYL (PF) 50 MCG/ML 2 ML AMP ONE (10:41)
[2016-08-18] MEDS ORDERED: fentaNYL (PF) 50 MCG/ML 2 ML AMP IV ONE (10:43)
[2016-08-18] MEDS ORDERED: ACETAMINOPHEN IV (For NPO) 1,000 MG in EMPTY BAG 1 BAG IVPB ONE (11:54)
[2016-08-18] MEDS ORDERED: ACETAMINOPHEN TAB 325 MG TAB PO PRN (11:54)
--- NOTE | 2016-08-18 12:13 | P.PCN ---
Preoperative Diagnosis: Patient underwent EP procedure under conscious sedation/moderate sedation, monitoring of the level of consciousness and physiologic parameters including but not limited to vital signs and oxygenation. Patient tolerated the procedure well without any acute complications. Start time: Stop time:
--- NOTE | 2016-08-18 13:01 | CE ---
DATE OF SERVICE: Asher Hatch is a 71-year-old male patient who has atrial fibrillation with RVR, which is asymptomatic. He is on sotalol and is on metoprolol for maintenance of sinus rhythm; however, he became bradycardic and therefore the dose of metoprolol had to be reduced and he is brought in for a dual-chamber chamber pacemaker implantation for management of tachybrady syndrome and is awaiting AV junction modification. The patient was brought to the EP lab in a fasting state. Written informed consent was obtained prior to the procedure. Left shoulder area was prepped and draped as per protocol and 1% lidocaine was used for local anesthesia. A 4 cm incision was made parallel to the deltopectoral groove about 1.5 cm medial to it. The incision was carried down to level of pectoralis muscle. A subfascial pocket was made. Hemostasis was assured. The left axillary vein was accessed at 2 separate points under fluoroscopy and via appropriate-sized introducer sheaths, 2 leads were positioned in the right heart. Atrial lead was Atkinson WOWash lead [employer] MRI model #7736, 52 cm in length and serial #[id number]. This gentleman has an enlarged RA and RV and therefore due to length considerations of the standard pacing lead an ICD lead instead was implanted. This was a [employer] [place] SG model #0180, serial #[id number]. This lead was longer than the standard pacing lead and it fit well with adequate length outside the pectoral muscle. The leads were secured to the underlying pectoralis fascia and then connected to the generator Accolade MRI EL DR pacemaker model #L331, serial #[id number]. ( ) DF ( ) was capped and secured to the pectoralis muscle. The wound was closed in 3 layers and dressed per protocol. The P waves were 3.1 mV, R waves 16.8 mV, atrial pacing threshold 0.8 v at 0.4 ms and the RV pacing threshold 0.5 v at 0.4 ms. The atrial pacing impedance 645 ohms. RV pacing impedance 646 ohms. The 10 volt test was negative in both leads. The device was then programmed to DDDR mode at 50-130 bpm with AV ( ). The patient tolerated the procedure well without any acute complications.
--- NOTE | 2016-08-18 13:08 | LTR ---
August 18, 2016 ASHER GONGORA DO RE: Asher Hatch Dear Asher: I had the pleasure of seeing Mr. Hatch in electrophysiology followup. Mr. Hatch has tachybrady syndrome and his beta reggie dose has been reduced. On account of this, he has very symptomatic atrial fibrillation. He underwent a dual-chamber pacemaker implantation. My plan is to consider A. fib ablation in the future. If you have any questions, please do not hesitate to call. Sincerely, FAITH SOTO MD
[2016-08-18] MEDS: ceFAZolin 2 GM in SODIUM CHLORIDE 0.9% 100 ML IVPB SCH ×2 (17:52→23:16)
[2016-08-18] MEDS ORDERED: WARFARIN 7.5 MG TAB PO SCH (18:00)
[2016-08-18] MEDS: HYDROcodone/APAP 5-325MG 1 EACH TAB PO PRN (20:02)
[2016-08-18] MEDS ORDERED: SOTALOL 80 MG TAB PO SCH (21:00)
[2016-08-18] MEDS ORDERED: TAMSULOSIN 0.4 MG CAP.ER.24H PO SCH (21:00)
[2016-08-19] MEDS: HYDROcodone/APAP 5-325MG 1 EACH TAB PO PRN (04:42)
[2016-08-19] MEDS: ceFAZolin 2 GM in SODIUM CHLORIDE 0.9% 100 ML IVPB SCH ×2 (05:50→11:19)
[2016-08-19] MEDS: SODIUM CHLORIDE 0.9% 1,000 ML IV SCH (06:07)
--- NOTE | 2016-08-19 07:40 | XR ---
EXAMINATION TYPE: XR chest 2V DATE OF EXAM: 08/19/2016 7:06 AM HISTORY: Lead placement check. REFERENCE: Previous study dated 07/05/2016. FINDINGS: There is a bipolar pacemaker in place on the left. The heart is mildly enlarged. The lungs are clear. There is blunting of the left CP angle. IMPRESSION: 1. MILD CARDIOMEGALY. 2. I CANNOT EXCLUDE A SMALL LEFT EFFUSION.
[2016-08-19 07:49] LABS: INR 2.5 (<1.1); Prothrombin Time 24.5 sec (9.0-12.0)
--- NOTE | 2016-08-19 07:59 | P.DS ---
Providers Attending physician: Merrick Michaels Primary care physician: Asher [facility] Course: Patient is doing well from a cardiac standpoint. He underwent dual-chamber pacemaker implantation for symptomatic sinus bradycardia necessitating reduction of sotalol and this conclusion of metoprolol in June when he was admitted for symptomatic atrial fibrillation and underwent electrical cardioversion at that time. He has mild soreness in the pacemaker site no dizziness no lightheadedness no chest discomfort Vitals are stable him a he is afebrile him a pulse rate is normal in the 60s respirations normal, blood pressure 123/61 mmHg And neck examination is normal Heart sounds are normal Impression Known coronary artery disease Old inferior basal LA Nonsustained ventricular tachycardia Sick Sinus Syndrome Prolonged NE interval Symptomatic atrial fibrillation despite reasonable rate control Necessitating maintenance of sinus rhythm which improved his quality of life Status post dual-chamber pacemaker implantation Continue sotalol 40 mg twice daily Restart metoprolol succinate 25 mg by mouth daily Patient is be scheduled for an A. fib ablation after 6-8 weeks He will continue anticoagulation Long-term plan: Maintain sinus rhythm for symptomatic atrial fibrillation and improve quality of life Plan - Discharge Summary New Discharge Prescriptions: Sotalol [Betapace] 40 mg PO TID #30 tablet Discharge Medication List Atorvastatin [Lipitor] 80 mg PO DAILY 09/17/14 [History] Lisinopril [Prinivil] 20 mg PO DAILY 09/17/14 [History] Multivitamins, Thera [Multivitamin] 1 tab PO DAILY 09/17/14 [History] Aspirin 81 mg PO DAILY #30 chew 01/07/15 [Rx] Calcium 500mg 500 mg PO DAILY 05/26/16 [History] Tamsulosin HCl [Flomax] 0.4 mg PO HS 05/26/16 [History] Warfarin [Coumadin] 11.25 mg PO SUMOWETHSA 07/05/16 [History] Warfarin [Coumadin] 15 mg PO TUFR 07/05/16 [History] Furosemide Oral Soln [Lasix] 40 mg PO DAILY #1 cup 07/12/16 [Rx] Magnesium Oxide 400 mg PO DAILY #1 tablet 07/12/16 [Rx] Spironolactone [Aldactone] 50 mg PO DAILY #1 tab 07/12/16 [Rx] Sotalol [Betapace] 40 mg PO TID #30 tablet 08/19/16 [Rx] Activity/Diet/Wound Care/Special Instructions: PATIENT EDUCATION MATERIAL Instructions following a heart rhythm device implant. 1. Keep dressing DRY for ONE week. You may cover the area with Saran or Cling Wrap, prior to a shower. 2. The dressing will be removed after one week in the Device Clinic @ [facility]. Absorbable sutures were used to close the wound. 3. Avoid raising the [left] arm above the shoulder level. [6 week restriction] 4. Avoid arm movements, like backscratching, rubbing the head, or pulling on a cord. (6 weeks restriction) 5. Gentle range of motion movements of the shoulder, closest to the incision should be performed to avoid a frozen shoulder. (Pendulum exercises of the shoulder) 6. The opposite arm may be used freely. 7. Avoid driving for 7 days. 8. Avoid activities such as golfing, swimming, weed whacking, lifting more than 10 pounds weight, bowling, gymnastics and weight training/lifting. (6 weeks restriction) 9. Activities such as wood chopping with an axe, pull-ups in the gymnasium, power lifting, arc-welding, being close to home induction cooktops will always be a problem. In case of any problems, please call [facility], Melissa Culp, @ [phone], Attention: Device Clinic
[2016-08-19] MEDS ORDERED: ATORVASTATIN 80 MG TAB PO SCH (09:00)
[2016-08-19] MEDS ORDERED: SOTALOL 80 MG TAB PO SCH (09:00)
[2016-08-19] MEDS ORDERED: FUROSEMIDE 40 MG TAB PO SCH (09:00)
[2016-08-19] MEDS ORDERED: LISINOPRIL 20 MG TAB PO SCH (09:00)
[2016-08-19] MEDS ORDERED: MULTIVITAMINS, THERA 1 EACH TAB PO SCH (09:00)
[2016-08-19] MEDS ORDERED: ASPIRIN 81 MG CHEW PO SCH (09:00)
[2016-08-19] MEDS ORDERED: MAGNESIUM OXIDE 400 MG TAB PO SCH (09:00)
[2016-08-19] MEDS ORDERED: SPIRONOLACTONE 25 MG TAB PO SCH (09:00)
[2016-08-19 12:34] VITALS: BP 127/74; PULSE 60; RESP 16; TEMP 97.9
[2016-08-19] MEDS ORDERED: WARFARIN 7.5 MG TAB PO SCH (18:00)
== END 2016-08-19 13:20 | disposition home or self-care (01) ==
LOC: CATHEP 08:19 → 3OBS 11:28 → CATHEP 08-19 13:20
PROVIDERS: ATTEND Internal Medicine Clinical Cardiac Electrophysiology
DX: I49.5 Sick sinus syndrome (principal); I48.2 Chronic atrial fibrillation; I51.7 Cardiomegaly; I25.10 Atherosclerotic heart disease of native coronary artery without angina pectoris; I25.2 Old myocardial infarction; I47.2 Ventricular tachycardia; I10 Essential (primary) hypertension; E78.5 Hyperlipidemia, unspecified; Z79.01 Long term (current) use of anticoagulants; Z79.82 Long term (current) use of aspirin; Z79.899 Other long term (current) drug therapy
CPT/HCPCS: 99152; 99153; 33208; 80048; 85025; 85610 ×2; 71020; C1895; C1785; C1898; J2001; J2250; Q9967; J0690 ×3; J3010

== ENCOUNTER → 2016-10-12 | Outpatient (CLI) | payer MEDICARE ==
[2016-10-12 08:08] LABS: CH 31.8; CHCM 33.7; HDW 2.36; HGB 14.2 gm/dL (13.0-17.5); MCHC 33.8 g/dL (31.0-37.0); MCV 94.7 fL (80.0-100.0); Mean Platelet Volume 6.6; RBC 4.43 m/uL (4.30-5.90); RDW 13.3 % (11.5-15.5)
[2016-10-12 08:12] LABS: INR 2.7 (<1.1)
[2016-10-12 08:27] LABS: Anion Gap 8 mmol/L; Blood Urea Nitrogen 22 mg/dL (9-20); Calcium 9.3 mg/dL (8.4-10.2); Carbon Dioxide 27 mmol/L (22-30); Chloride 106 mmol/L (98-107); Glucose 92 mg/dL (74-99); Non-African American GFR(MDRD) >60 (>60 ml/min/1.73 sqM); Potassium 4.8 mmol/L (3.5-5.1); Sodium 141 mmol/L (137-145)
== END | disposition home or self-care (01) ==
LOC: LABWHC1 06:34
PROVIDERS: ATTEND Internal Medicine Clinical Cardiac Electrophysiology
DX: I48.0 Paroxysmal atrial fibrillation (principal); Z79.01 Long term (current) use of anticoagulants; Z51.81 Encounter for therapeutic drug level monitoring
CPT/HCPCS: 36415; 80048; 85027; 85610

== ENCOUNTER 2016-10-20 08:57 | Day surgery (SDC) | payer MEDICARE ==
[2016-10-18 13:18] VITALS: BMI 37.3
[~2016-10-20 08:57] MED LIST changes: +LACTATED RINGERS 1,000 ML IV SCH; -ceFAZolin 1,000 MG in SODIUM CHLORIDE 0.9% IRRIGATIO 250 ML IRRIGATION ONE; -ceFAZolin 2 GM in SODIUM CHLORIDE 0.9% 100 ML IVPB ONE
[2016-10-20] MEDS: SODIUM CHLORIDE 0.9% 1,000 ML IV SCH ×2 (09:38→21:18)
[2016-10-20 09:58] LABS: INR 2.7 (<1.1); Prothrombin Time 26.2 sec (9.0-12.0)
[2016-10-20] MEDS ORDERED: MIDAZOLAM 2 MG/2 ML VIAL ONE ×2 (10:01→11:13)
[2016-10-20] MEDS ORDERED: LIDOCAINE URO-JET JELLY 2% 5 ML KIT ONE (11:09)
[2016-10-20] MEDS ORDERED: ePHEDrine 50 MG/ML 1 ML AMP ONE (11:13)
[2016-10-20] MEDS ORDERED: PROPOFOL 10 MG/ML 20 ML VIAL IV ONE (11:13)
[2016-10-20] MEDS ORDERED: PHENYLEPHRINE-0.9% NACL SYG 1 MG/10 ML SYRINGE ONE (11:13)
[2016-10-20] MEDS ORDERED: SUCCINYLCHOLINE CHLORIDE VIAL 200 MG/10 ML VIAL IV ONE (11:13)
[2016-10-20] MEDS ORDERED: HEPARIN SODIUM,PORCINE 5,000 UNIT/ML 1 ML VIAL ONE (11:13)
[2016-10-20] MEDS ORDERED: PROTAMINE SULFATE 10 MG/ML 5 ML VIAL IV ONE ×3 (11:13→14:57)
[2016-10-20] MEDS ORDERED: WATER FOR INJECTION, STERILE 10 ML VIAL IV ONE (11:13)
[2016-10-20] MEDS ORDERED: fentaNYL (PF) 50 MCG/ML 2 ML AMP ONE (11:13)
[2016-10-20] MEDS ORDERED: LIDOCAINE 1% INJ 10MG/ML (20 ML MDV) ONE (11:13)
[2016-10-20] MEDS ORDERED: ISOPROTERENOL 250 MCG/1.25 ML SYR IV ONE (11:13)
[2016-10-20] MEDS ORDERED: MORPHINE SULFATE 10 MG/ML SYRINGE ONE (11:13)
[2016-10-20] MEDS ORDERED: HEPARIN SODIUM 1,000 UNIT/ML VIAL ONE (11:13)
[2016-10-20] MEDS ORDERED: LIDOCAINE 2% INJ 20 MG/ML SQ ONE (11:59)
[2016-10-20] MEDS ORDERED: HEPARIN SODIUM,PORCINE/D5W PMX 25,000 UNIT in DEXTROSE/WATER 1 500ML.BAG IV ONE (12:00)
[2016-10-20] MEDS ORDERED: IOHEXOL 350 MG/ML 125ML BOTTLE INJ ONE (14:57)
[2016-10-20] MEDS ORDERED: ACETAMINOPHEN TAB 325 MG TAB PO PRN (15:24)
[2016-10-20] MEDS ORDERED: HYDROcodone/APAP 5-325MG 1 EACH TAB PO PRN (15:24)
--- NOTE | 2016-10-20 15:40 | P.PCN ---
Preoperative Diagnosis: Procedures performed (PVI - CRYO Ablation) Invasive hemodynamic monitoring while general anesthesia, right femoral arterial line for monitoring and sampling Comprehensive diagnostic EP study with attempted arrhythmia induction CS pacing and recording Drug infusion Catheter the mapping of the tachycardia (NOT 3D mapping) Intracardiac echocardiography Pulmonary vein isolation with transseptal and comprehensive EPS, [id number] Pacemaker interrogation with reprogramming Procedure details Patient was brought to the EP lab in a fasting state. Written informed consent was obtained prior to the procedure. Procedure performed under general anesthesia After initial muscle relaxant use, muscle relaxants were not given thereafter in order to assess phrenic nerve during procedure Patient prepped and draped as per protocol Full cryo-set up with standard preparation of the cryoablation tools done Femoral Venous access obtained on the right and left groins Sheaths placed Diagnostic catheters for the high right atrium, phrenic nerve stimulation and pacing, His bundle, RV and coronary sinus placed Intracardiac echo catheter placed Long sheath placed in the right atrium Left and right transseptal catheterization performed under intracardiac echo guidance Intravenous heparin with aCT above 300 Later, catheter positioning and balloon positioning under intracardiac echo Baseline measurements SC interval 239, QRS 95, QT 418. HV interval 52 Comprehensive diagnostic EP study with drug infusion Atrial pacing performed from the high right atrium and the coronary sinus Slow pathway conduction at 370 ms VA Wenckebach block 370 ms AV node ERP from the Jeremias sinus 500\320 ms Pacing from the HRA Pacing from the RV Pacing from the CS Transseptal catheterization performed RA pressure 11/4/8 LA pressure 15/7/10 Transseptal catheterization performed with standard sheath. The cryoablation sheath was then placed with an over the wire exchange without any acute complications. All 4 pulmonary veins were isolated in the following sequence: Left superior followed by left inferior followed by right superior followed by right inferior The cryo-ablation balloon was placed at the os of each vein 1.5 mL of IV dye was injected to confirm an occluded vein Goal during cryoablation was to achieve -30C in the first 30 seconds. If not the balloon was repositioned to obtain this result After completion of Cryoblation with durations from 180-240 seconds, entrance block was confirmed with the Attain circular catheter in a roving fashion around the antrum of the pulmonary veins Phrenic nerve pacing was performed from the SVC, right innominate vein area and diaphragm voltage was monitored as well as manually Left-sided esophagus Left superior pulmonary vein First cryoablation Duration of cryoablation lesion 180 seconds -30C achieved at 34 seconds -40C achieved at 85 seconds Minimum temperature achieved -45C Thaw time 9 seconds Second cryoablation Duration of cryoablation lesion 180 seconds -30C achieved at 29 seconds -40C achieved at 38 seconds Minimum temperature achieved -56C Thaw time 13 seconds Vein isolated yes Lowest esophageal temperature 33.6 degrees centigrade Left inferior pulmonary vein First cryoablation Duration of cryoablation lesion 100 seconds -30C achieved at 34 seconds -40C achieved at 90 seconds Minimum temperature achieved -40C Lowest esophageal temperature 33.5C Second cryoablation Duration of cryoablation lesion 223 seconds -30C achieved at 29 seconds -40C achieveFirst cryoablation 39 seconds Minimum temperature achieved -59C Vein isolated yes Right superior pulmonary vein, during phrenic nerve pacing First cryoablation Duration of cryoablation lesion 240 seconds -30C achieved at 34 seconds -40C achieved at 54 seconds Minimum temperature achieved -52C Thaw time 11 seconds Vein isolated yes Right inferior pulmonary vein, during phrenic nerve pacing First cryoablation Duration of cryoablation lesion 180 -30C achieved at 38 -40C achieved at 133 Minimum temperature achieved -40 Thaw time 6 seconds Vein isolated yes Second cryoablation Duration of cryoablation lesion 180 seconds -30C achieved at 39 seconds -40C achieved at 145 seconds Minimum temperature achieved -41C Thaw time 9 seconds Vein isolated yes At the end of the procedure the Achieve catheter was once again used to check for entrance block Phrenic nerve stimulation was performed to confirm diaphragmatic stimulation the end of the procedure Cine fluoroscopy was performed at the very end of the procedure to confirm movement of both diaphragms with inspiration and expiration At the end of the procedure the patient was extubated Heparin was reversed Venous sheaths were removed and hemostasis assured Result Successful pulmonary vein isolation using cryo-ablation Complete entrance block in all 4 veins confirmed No evidence for phrenic nerve injury
[2016-10-20] MEDS ORDERED: LACTATED RINGERS 1,000 ML IV ONE (15:59)
[2016-10-20] MEDS ORDERED: ACETAMINOPHEN IV (For NPO) 1,000 MG in EMPTY BAG 1 BAG IVPB ONE (20:00)
[2016-10-20 20:25] VITALS: TEMP 96.8
[2016-10-20] MEDS ORDERED: TAMSULOSIN 0.4 MG CAP.ER.24H PO SCH (21:00)
[2016-10-20] MEDS: SOTALOL 80 MG TAB PO SCH (21:19)
--- NOTE | 2016-10-21 08:30 | PN ---
Asher Hatch is a 71-year-old male patient with persistent atrial fibrillation who is on sotalol. He has undergone a dual-chamber pacemaker implantation for sick sinus syndrome and AV node disease. He is brought in for an A. fib ablation for very symptomatic atrial fibrillation with tiredness and fatigue. He is already on sotalol at this time. He underwent successful cryoablation of the pulmonary veins with isolation of the pulmonary veins. He is doing well this morning. His blood pressure is in normal range. He is ambulating in the hallways. Blood pressure is 104/52 mmHg. His heart rate is in the 80s. Afebrile 96.8 degrees Fahrenheit, normal respirations. Breath sounds are normal. Normal S1, normal S2. Head and neck examination is normal. No JVD, thyromegaly, carotid bruits. Heart sounds S1 and S2 are normal. No murmurs, no gallops. Lungs are clear to auscultation. Abdomen is soft. Groins have healed well, no hematoma. IMPRESSION: 1. Persistent atrial fibrillation. 2. Sick sinus syndrome and AV node disease, status post pacemaker. 3. Status post pulmonary vein isolation, cryoablation. PLAN: Continue anticoagulation. Continue sotalol. Short course of colchicine 0.6 mg p.o. b.i.d. for 3 days along with Zantac. He will stop this in 3 days. He will follow with Dr. Lamb on the 02 of November as scheduled.
[2016-10-21] MEDS ORDERED: LISINOPRIL 20 MG TAB PO SCH (09:00)
[2016-10-21] MEDS ORDERED: MAGNESIUM OXIDE 400 MG TAB PO SCH (09:00)
[2016-10-21] MEDS ORDERED: FUROSEMIDE 40 MG TAB PO SCH (09:00)
[2016-10-21] MEDS ORDERED: SPIRONOLACTONE 25 MG TAB PO SCH (09:00)
[2016-10-21] MEDS ORDERED: ASPIRIN 81 MG CHEW PO SCH (09:00)
[2016-10-21] MEDS ORDERED: ATORVASTATIN 80 MG TAB PO SCH (09:00)
[2016-10-21] MEDS ORDERED: HYDROCHLOROTHIAZIDE 12.5 MG CAP PO SCH (09:00)
[2016-10-21] MEDS ORDERED: METOPROLOL SUCCINATE (ER) 25 MG TAB.ER.24H PO SCH (09:00)
[2016-10-21] MEDS: SOTALOL 80 MG TAB PO SCH (10:10)
[2016-10-21 10:32] VITALS: BP 123/73; PULSE 85; RESP 18
[2016-10-21] MEDS ORDERED: WARFARIN 7.5 MG TAB PO SCH (18:00)
[2016-10-22] MEDS ORDERED: WARFARIN 7.5 MG TAB PO SCH (18:00)
== END 2016-10-21 13:40 | disposition home or self-care (01) ==
LOC: CATHEP 08:57 → 6SEL 18:37 → CATHEP 10-21 13:40
PROVIDERS: ATTEND Internal Medicine Clinical Cardiac Electrophysiology
DX: I48.2 Chronic atrial fibrillation (principal); I49.5 Sick sinus syndrome; Z95.0 Presence of cardiac pacemaker; I10 Essential (primary) hypertension; E78.5 Hyperlipidemia, unspecified; I25.10 Atherosclerotic heart disease of native coronary artery without angina pectoris; Z79.01 Long term (current) use of anticoagulants; Z79.82 Long term (current) use of aspirin; Z79.899 Other long term (current) drug therapy
CPT/HCPCS: 85347; 93623; 93662; 93609; 93656; 85610; C1769 ×4; C1894 ×3; C1730 ×4; C1759; C1893; C1733; C1766; J2001 ×2; J2250; J0330; J2720; J1644 ×3; J2270; J3010; J0131; J2370; J2704; Q9967

== ENCOUNTER → 2017-08-16 | Outpatient (CLI) | payer MEDICARE | END | disposition home or self-care (01) | LOC: CPPFTMAIN 12:42 | PROVIDERS: ATTEND Internal Medicine Clinical Cardiac Electrophysiology | DX: I99.9 Unspecified disorder of circulatory system (principal) | CPT/HCPCS: 94060; 94726; 94729 ==

== ENCOUNTER → 2017-10-16 | Outpatient (CLI) | payer MEDICARE ==
[2017-10-16 07:32] LABS: HCT 42.1 % (39.0-53.0); HGB 14.2 gm/dL (13.0-17.5); MCH 31.2 pg (25.0-35.0); MCHC 33.7 g/dL (31.0-37.0); MCV 92.7 fL (80.0-100.0); Mean Platelet Volume 6.5; Platelet Count 310 k/uL (150-450); RBC 4.54 m/uL (4.30-5.90); RDW 12.6 % (11.5-15.5); WBC 9.4 k/uL (3.8-10.6)
[2017-10-16 08:07] LABS: ALT 42 U/L (21-72); AST 28 U/L (17-59); Anion Gap 12 mmol/L; Blood Urea Nitrogen 24 mg/dL (9-20); Calcium 9.5 mg/dL (8.4-10.2); Carbon Dioxide 29 mmol/L (22-30); Chloride 103 mmol/L (98-107); Cholesterol 175 mg/dL (<200); Glucose 93 mg/dL (74-99); HDL Cholesterol 53 mg/dL (40-60); LDL Cholesterol,Calculated 100 mg/dL (0-99); Sodium 144 mmol/L (137-145); Triglycerides 108 mg/dL (<150)
== END | disposition home or self-care (01) ==
LOC: LABWHC1 06:36
PROVIDERS: ATTEND Nurse Practitioner Adult Health
DX: E78.2 Mixed hyperlipidemia (principal); I25.10 Atherosclerotic heart disease of native coronary artery without angina pectoris
CPT/HCPCS: 36415; 80048; 80061; 84450; 84460; 85027

== ENCOUNTER 2017-10-24 06:31 | Day surgery (SDC) | payer MEDICARE ==
[2017-10-20 10:48] VITALS: BMI 40.1
[~2017-10-24 06:31] MED LIST changes: +ALPRAZolam 0.25 MG TAB PO PRN; +ALPRAZolam 0.5 MG TAB PO PRN; +ASPIRIN 325 MG TAB PO STA; +ATORVASTATIN 80 MG TAB PO STA; -LACTATED RINGERS 1,000 ML IV SCH; +NITROGLYCERIN SL TABS 0.4 MG TAB SUBLINGUAL PRN; +SODIUM CHLORIDE 0.9% 1,000 ML in EMPTY BAG 1 BAG IV ONE
[2017-10-24 07:21] LABS: INR 1.1 (<1.2)
[2017-10-24] MEDS ORDERED: IV FLUID CONTINUATION 1,000 ML IV ONE (07:25)
[2017-10-24] MEDS: MIDAZOLAM 2 MG/2 ML VIAL IVP ONE ×2 (07:31→07:37)
[2017-10-24] MEDS ORDERED: LIDOCAINE 2% INJ 20 MG/ML SQ ONE (07:38)
[2017-10-24] MEDS ORDERED: BIVALIRUDIN 250 MG in SODIUM CHLORIDE 0.9% 50 ML IV ONE (07:57)
[2017-10-24] MEDS ORDERED: BIVALIRUDIN BOLUS 250 MG/50 ML IV ONE (07:57)
[2017-10-24] MEDS ORDERED: CLOPIDOGREL 75 MG TAB PO ONE (08:01)
[2017-10-24] MEDS: fentaNYL (PF) 50 MCG/ML 2 ML AMP IVP ONE ×2 (08:06→08:09)
[2017-10-24] MEDS ORDERED: IOPAMIDOL-370 125ML BTL INJ ONE (08:07)
[2017-10-24] MEDS ORDERED: NITROGLYCERIN 1000MCG/10ML SYRINGE INTRACORON ONE (08:15)
[2017-10-24] MEDS ORDERED: IOPAMIDOL-370 100ML BTL INJ ONE (08:18)
[2017-10-24] MEDS ORDERED: NITROGLYCERIN SL TABS 0.4 MG TAB SUBLINGUAL PRN (08:24)
[2017-10-24] MEDS ORDERED: RX INFO: IV CONTRAST WAS GIVEN 1 EACH MISC MISCELLANE PRN (08:24)
[2017-10-24] MEDS ORDERED: MAG HYDROX/AL HYDROX/SIMETH 30 ML CUP PO PRN (08:24)
[2017-10-24] MEDS ORDERED: ZOLPIDEM 5 MG TAB PO PRN (08:24)
[2017-10-24] MEDS ORDERED: ATROPINE SULFATE 0.1 MG/ML 10ML SYRINGE IV PRN (08:24)
[2017-10-24] MEDS ORDERED: SODIUM CHLORIDE 0.9% 1,000 ML IV SCH (08:30)
[2017-10-24] MEDS ORDERED: [UNRECOGNIZED DRUG - OTHER] PO SCH (09:00)
[2017-10-24] MEDS ORDERED: METOPROLOL SU PO SCH (09:00)
[2017-10-24] MEDS ORDERED: HYDROCHLOROTHIAZ PO SCH (09:00)
--- NOTE | 2017-10-24 09:01 | CC ---
CARDIAC CATHETERIZATION REPORT DATE OF SERVICE: 10/24/2017 PERFORMING PHYSICIAN: Dao Mcfarland MD, Chaplain. PROCEDURE PERFORMED: 1. Selective right and left coronary angiogram. 2. Successful stenting of the first diagonal branch of the LAD using 2.5 x 23 mm Xience TYLER with good angiographic results. 3. Successful stenting of the PDA branch of the RCA using 2.75 x 12 mm Xience TYLER with good angiographic results. INDICATION: This is a pleasant 72-year-old gentleman who sees Dr. Michaels in the office as an outpatient with known history of coronary artery disease and prior stenting of the RCA as well as left circumflex, as well as multiple risk factors for coronary artery disease who was experiencing intermittent episodes of chest discomfort and exertional dyspnea concerning for angina. In view of that, a heart catheterization was recommended. APPROACH: Right common femoral artery. COMPLICATION: None. LEVEL OF SEDATION: Moderate with sedation length of 66 minutes. PROCEDURE DESCRIPTION: After obtaining an informed consent, the patient was brought to the Cardiac [facility]. The right common femoral artery was cannulated using micropuncture technique, the micropuncture wire passed easily. Then I placed a 6-Amharic sheath in the right common femoral artery. After that, I did selective right and left coronary angiogram. Selective right coronary angiogram was performed using JR4 catheter and selective left coronary angiogram was performed using JL4 with a short tip because of the short left main from previous angiogram. After that, I did pursue an intervention on the diag as well as RCA. Please see a separate paragraph for that. SELECTIVE CORONARY ANGIOGRAM: 1. The right coronary artery is a large caliber vessel and it is a dominant vessel. The proximal RCA appeared to be angiographically normal. The mid RCA is stented and the stent is patent. The RCA distally appeared to have mild disease only. It bifurcates into PDA and PLV branches. The PDA branch has a tight lesion in the midportion and PLV branch appeared to have mild disease only. 2. The left main is a short left main and seems to be angiographically normal. It bifurcates into left circumflex and left anterior descending artery. 3. The left circumflex is a large caliber vessel and it is a nondominant vessel. The proximal circ has mild disease only. The mid circ appeared to be angiographically normal. The mid to distal circ has what seems to be small aneurysm and the circ distally appeared to be angiographically normal. 4. The LAD: The proximal LAD appeared to have mild disease only. It gives rise into a large diag branch which has a tight lesion in the proximal portion about 70%. PCI OF THE DIAGONAL WELL RCA: 1. Anticoagulation was initiated using Angiomax. Subsequently, the left main was engaged using JL4 with a short tip. A whisper wire was used to wire the diag. After that, I did balloon angioplasty using 2.5 mm balloon, then I deployed 2.5 x 23 mm Xience TYLRE where the stent was positioned under fluoroscopy guidance and deployed under its nominal pressure. The following angiogram showed good angiographic results. 2. 3. For the RCA, I did engage the RCA using a JR4 guide. I did wire using a whisper wire. Subsequently I did direct stenting of the lesion using 2.75 x 12 mm Xience TYLER where the stent again was positioned under fluoroscopy guidance and deployed under its nominal pressure with the following angiogram showed good angiographic results and the procedure was completed without any complication. CONCLUSION: 1. Intermittent episodes of chest discomfort and exertional dyspnea concerning for angina. 2. Severe disease involving the PDA branch of the right coronary artery, which was stented successfully. 3. Mild disease involving the left circumflex. 4. Severe disease involving the first diagonal branch of the left anterior descending artery, which was stented successfully as well. POSTPROCEDURE MANAGEMENT: 1. Dual anti-platelet therapy. 2. Risk factors modifications and follow up with the patient. MMJEM / ERNESTON: [id number] /
[2017-10-24] MEDS ORDERED: MORPHINE SULFATE 4 MG/ML SYRINGE IVP STA (10:44)
[2017-10-24] MEDS: FAMOTIDINE 20 MG TAB PO SCH ×2 (10:55→21:23)
[2017-10-24] MEDS: ASPIRIN 81 MG PO SCH (10:55)
[2017-10-24] MEDS: FUROSEMIDE 40 MG TAB PO SCH (10:56)
[2017-10-24] MEDS: HYDROCHLOROTHIAZIDE 12.5 MG CAP PO SCH ×2 (10:56→21:24)
[2017-10-24] MEDS: SPIRONOLACTONE 25 MG TAB PO SCH (10:56)
[2017-10-24] MEDS: LISINOPRIL 20 MG TAB PO SCH (10:56)
[2017-10-24] MEDS: ISOSORBIDE MONONITRATE ER 15 MG TAB PO SCH (10:56)
[2017-10-24] MEDS: METOPROLOL SUCCINATE (ER) 25 MG TAB.ER.24H PO SCH ×2 (10:57→21:30)
[2017-10-24] MEDS: MULTIVITAMINS, THERA 1 EACH TAB PO SCH (11:38)
[2017-10-24] MEDS ORDERED: CALCIUM CARB-VIT D 500MG-200UN 1 EACH TAB PO SCH (12:00)
[2017-10-24] MEDS ORDERED: MAGNESIUM OXIDE 400 MG TAB PO SCH (12:00)
[2017-10-24] MEDS ORDERED: ATORVASTATIN 80 MG TAB PO SCH (21:00)
[2017-10-24] MEDS ORDERED: TAMSULOSIN 0.4 MG CAP.ER.24H PO SCH (21:00)
[2017-10-25 02:13] VITALS: RESP 18
[2017-10-25 06:19] LABS: Basophils % (A) 0 %; Eosinophils # (A) 0.3 k/uL (0-0.7); Eosinophils % (A) 3 %; HCT 38.5 % (39.0-53.0); HGB 12.8 gm/dL (13.0-17.5); Lymphocytes % (A) 11 %; MCH 31.2 pg (25.0-35.0); MCHC 33.1 g/dL (31.0-37.0); MCV 94.1 fL (80.0-100.0); Mean Platelet Volume 6.5; Monocytes # (A) 0.7 k/uL (0-1.0); Monocytes % (A) 7 %; Neutrophils # (A) 6.8 k/uL (1.3-7.7); Neutrophils % (A) 76 %; Platelet Count 270 k/uL (150-450); RBC 4.09 m/uL (4.30-5.90); RDW 12.6 % (11.5-15.5); WBC 8.9 k/uL (3.8-10.6)
[2017-10-25 06:31] LABS: Calcium 9.5 mg/dL (8.4-10.2); Potassium 4.4 mmol/L (3.5-5.1)
[2017-10-25] MEDS ORDERED: CLOPIDOGREL 75 MG TAB PO SCH (09:00)
[2017-10-25] MEDS: ASPIRIN 81 MG PO SCH (09:38)
[2017-10-25] MEDS: FAMOTIDINE 20 MG TAB PO SCH (09:39)
[2017-10-25] MEDS: FUROSEMIDE 40 MG TAB PO SCH (09:39)
[2017-10-25] MEDS: ISOSORBIDE MONONITRATE ER 15 MG TAB PO SCH (09:40)
[2017-10-25] MEDS: LISINOPRIL 20 MG TAB PO SCH (09:40)
[2017-10-25] MEDS: HYDROCHLOROTHIAZIDE 12.5 MG CAP PO SCH (09:40)
[2017-10-25] MEDS: SPIRONOLACTONE 25 MG TAB PO SCH (09:41)
[2017-10-25] MEDS: METOPROLOL SUCCINATE (ER) 25 MG TAB.ER.24H PO SCH (09:41)
[2017-10-25] MEDS: MULTIVITAMINS, THERA 1 EACH TAB PO SCH (09:42)
[2017-10-25 09:48] VITALS: BP 104/63; PULSE 76; TEMP 97
--- NOTE | 2017-10-25 10:56 | DS ---
DISCHARGE SUMMARY ADMISSION DATE: 10/24/2017 DISCHARGE DATE: 10/25/2017 BRIEF HISTORY: This is a pleasant 72-year-old gentleman who sees Dr. Michaels in the office as an outpatient with known history of coronary artery disease and prior stenting of the RCA and left circumflex as well as multiple risk factors for coronary artery disease was experiencing intermittent episodes of chest discomfort and exertional dyspnea. The heart catheterization was recommended. The patient underwent a heart catheterization and successful stenting of the first diagonal branch of the LAD as well as the PDA branch of the RCA. On follow up with him today, he was doing good and he is asymptomatic. The right groin is soft and nontender and without any bruises. The patient is going to be discharged home on dual antiplatelet therapy and I will follow up with the patient in 2 weeks in the office. JENELLEL / ERNESTON: [id number] /
== END 2017-10-25 11:29 | disposition home or self-care (01) ==
LOC: CATHCVL 06:31 → 6SEL 08:15 → CATHCVL 10-25 11:29
PROVIDERS: ATTEND Internal Medicine Interventional Cardiology
DX: I25.110 Atherosclerotic heart disease of native coronary artery with unstable angina pectoris (principal); I10 Essential (primary) hypertension; I48.1 Persistent atrial fibrillation; Z79.01 Long term (current) use of anticoagulants; Z87.891 Personal history of nicotine dependence; Z92.82 Status post administration of tPA (rtPA) in a different facility within the last 24 hours prior to admission to current facility; Z82.49 Family history of ischemic heart disease and other diseases of the circulatory system; E78.5 Hyperlipidemia, unspecified; Z79.82 Long term (current) use of aspirin; Z79.899 Other long term (current) drug therapy
CPT/HCPCS: 93454; 80048; 85025; 85610; C9600; C9601; C1760; C1769 ×3; C1887 ×2; C1725; C1894; C1874; J2001; J2250; J2270; J3010; J0583; Q9967 ×2

== ENCOUNTER → 2018-10-13 | Outpatient (CLI) | payer MEDICARE ==
[2018-10-13 08:53] LABS: HCT 37.4 % (39.0-53.0); HGB 12.7 gm/dL (13.0-17.5); MCH 32.6 pg (25.0-35.0); MCV 95.8 fL (80.0-100.0); Mean Platelet Volume 6.7; Platelet Count 311 k/uL (150-450); WBC 9.3 k/uL (3.8-10.6)
[2018-10-13 09:01] LABS: INR 1.7 (<1.2); Prothrombin Time 17.3 sec (9.0-12.0)
[2018-10-13 09:07] LABS: Anion Gap 6 mmol/L; Blood Urea Nitrogen 22 mg/dL (9-20); Carbon Dioxide 28 mmol/L (22-30); Chloride 104 mmol/L (98-107); Glucose 93 mg/dL (74-99); Potassium 4.8 mmol/L (3.5-5.1); Sodium 138 mmol/L (137-145)
== END | disposition home or self-care (01) ==
LOC: LABPAT 08:16
PROVIDERS: ATTEND Internal Medicine Interventional Cardiology
DX: Z01.812 Encounter for preprocedural laboratory examination (principal); I48.0 Paroxysmal atrial fibrillation; I25.110 Atherosclerotic heart disease of native coronary artery with unstable angina pectoris
CPT/HCPCS: 36415; 80051; 82565; 82947; 84520; 85027; 85610

== ENCOUNTER 2018-10-17 10:50 | Day surgery (SDC) | payer MEDICARE ==
[~2018-10-17 10:50] MED LIST changes: -ALPRAZolam 0.5 MG TAB PO PRN; +ASPIRIN 325 MG TAB PO ONE; -ASPIRIN 325 MG TAB PO STA; -ATORVASTATIN 80 MG TAB PO STA
[2018-10-17] MEDS ORDERED: LIDOCAINE 1% INJ 10MG/ML (20 ML MDV) ONE (11:53)
[2018-10-17] MEDS ORDERED: fentaNYL (PF) 50 MCG/ML 2 ML AMP ONE (11:53)
[2018-10-17] MEDS ORDERED: IV FLUID CONTINUATION 1,000 ML IV ONE (12:03)
[2018-10-17 12:08] LABS: Prothrombin Time 10.5 sec (9.0-12.0)
[2018-10-17] MEDS ORDERED: fentaNYL (PF) 50 MCG/ML 2 ML AMP IV ONE (12:17)
[2018-10-17] MEDS ORDERED: LIDOCAINE 1% INJ 10MG/ML (20 ML MDV) SQ ONE (12:22)
[2018-10-17] MEDS ORDERED: IOPAMIDOL-370 50ML BTL INJ ONE (12:43)
[2018-10-17] MEDS ORDERED: IOPAMIDOL-370 150ML BTL INJ ONE (12:43)
[2018-10-17 12:46] LABS: O2 Sat Blood Gas 94.8 %
[2018-10-17 12:49] LABS: O2 Sat Blood Gas 62.7 %
[2018-10-17 12:52] LABS: O2 Sat Blood Gas 65.6 %
[2018-10-17] MEDS ORDERED: RX INFO: IV CONTRAST WAS GIVEN 1 EACH MISC MISCELLANE PRN (13:00)
[2018-10-17] MEDS ORDERED: SODIUM CHLORIDE 0.9% 1,000 ML IV SCH (13:00)
[2018-10-17 15:44] VITALS: RESP 18; TEMP 98.1
[2018-10-17] MEDS ORDERED: WARFARIN 7.5 MG TAB PO SCH (18:00)
--- NOTE | 2018-10-17 18:19 | CC ---
CARDIAC CATHETERIZATION REPORT Mr. Hatch is a 73-year-old male with a known history of coronary artery disease, status post multivessel coronary angioplasty, who has been followed by Dr. Michaels, has a history of paroxysmal atrial fibrillation and has been complaining of progressive symptoms of dyspnea. After evaluation by Dr. Michaels, recommendation was made regarding cardiac catheterization. The procedure, its risks and complications were discussed with the patient, who was in full understanding and agreement. 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 Using Xylocaine anesthesia and Seldinger technique, a 6-[place] sheath was introduced in the right femoral artery and an 8-[place] sheath in the right femoral vein. Right heart catheterization was performed using Tekoa-Arin catheter. Multiple pressure samples were obtained. Cardiac output by thermodilution was calculated. Following that, selective right and left coronary angiography was performed using 6-[place] 4 bend right and left Jessica catheters. Multiple views were taken of the arteries, including hemiaxial views. Following that, a 6-[place] tight pigtail catheter was introduced into the left ventricle and a 30-degree view of the left ventricle was obtained. Following that, catheter and sheath were removed. Hemostasis was obtained with deployment of an Angio- Seal in the right femoral artery and compression of the right femoral vein. There was no immediate complication. Patient was returned to his room in stable condition. HEMODYNAMICS: Right atrial saturation of 66%, pulmonary artery saturation 63%, femoral artery saturation 95%. Cardiac output by thermodilution 7.2 L/minute and by Rajan 5.8 L/minute. Pulmonary artery systolic pressure of 22 with a diastolic of 6 and a mean of 10 mmHg. Pulmonary capillary wedge pressure A-wave of 6, V-wave of 6, with a mean of 5 mmHg. Right ventricular systolic pressure of 23 with an end-diastolic of 3 mmHg. Right atrial A-wave of 4, V-wave of 3, with a mean of 2 mmHg. There was no gradient across the aortic valve. The left ventricular end-diastolic pressure was 16-20 mmHg. CORONARY ARTERIES: LEFT MAIN: This is a short-sized vessel that bifurcates immediately into the LAD and the left circumflex. Left main coronary artery has no evidence of obstructive coronary artery disease. LEFT ANTERIOR DESCENDING ARTERY: This is a large-sized vessel reaching to the apex with a wrap around the apex segment giving rise to a large diagonal branch proximally. The diagonal branch stented segment is patent. There is mild intimal disease of 10% to 20% without any evidence of high-grade stenosis. LEFT CIRCUMFLEX: This is a nondominant vessel, large in caliber, giving rise to a large obtuse marginal branch. The left circumflex stented segment is patent. There is no evidence of significant restenosis. There was an ulceration noted in the mid distal segment of the vessel that was noted in the past, with no progression. RIGHT CORONARY ARTERY: This is a large dominant vessel bifurcating distally into PDA and posterolateral segment and branches. The right coronary artery stented segments in the mid distal as well as the PDA are patent. There is intimal disease of 20% to 30% throughout the vessel without any evidence of high-grade stenosis. LEFT VENTRICULOGRAM: Left ventriculogram was performed in 30-degree LEACH view and revealed normal left ventricular size and systolic function. Ejection fraction 60%. There was no significant mitral regurgitation. CONCLUSION: 1. Mild triple-vessel coronary artery disease with no evidence of significant restenosis in the stented segments. 2. No evidence of pulmonary hypertension. 3. Normal left ventricular size and systolic function. RECOMMENDATIONS: In view of findings and anatomy, I have recommended continued medical therapy with aggressive coronary risk modifications that have been initiated. Those findings and recommendation were discussed with the patient and his family, and they are in full understanding and agreement. Duration of procedure 29 minutes. MMODL / IJN: [id number] /
[2018-10-17 18:26] VITALS: BP 129/54; PULSE 77
[2018-10-17] MEDS ORDERED: TAMSULOSIN 0.4 MG CAP.ER.24H PO SCH (21:00)
[2018-10-17] MEDS ORDERED: ATORVASTATIN 80 MG TAB PO SCH (21:00)
[2018-10-18] MEDS ORDERED: EZETIMIBE 10 MG TAB PO SCH (09:00)
[2018-10-18] MEDS ORDERED: ISOSORBIDE MONONITRATE ER 30 MG TAB.ER.24H PO SCH (09:00)
[2018-10-18] MEDS ORDERED: MAGNESIUM OXIDE 400 MG TAB PO SCH (09:00)
[2018-10-18] MEDS ORDERED: LISINOPRIL 10 MG TAB PO SCH (09:00)
[2018-10-18] MEDS ORDERED: SPIRONOLACTONE 25 MG TAB PO SCH (09:00)
[2018-10-18] MEDS ORDERED: CLOPIDOGREL 75 MG TAB PO SCH (09:00)
[2018-10-18] MEDS ORDERED: FUROSEMIDE 40 MG TAB PO SCH (09:00)
[2018-10-18] MEDS ORDERED: MULTIVITAMINS, THERA 1 EACH TAB PO SCH (09:00)
[2018-10-18] MEDS ORDERED: CALCIUM CARB-VIT D 500MG-200UN 1 EACH TAB PO SCH (09:00)
[2018-10-18] MEDS ORDERED: METOPROLOL SUCCINATE (ER) 100 MG TAB.ER.24H PO SCH (09:00)
[2018-10-18] MEDS ORDERED: WARFARIN 10 MG TAB PO SCH (18:00)
[2018-10-18] MEDS ORDERED: WARFARIN 1.5 MG TAB PO SCH (18:00)
== END 2018-10-17 21:56 | disposition home or self-care (01) ==
LOC: CATHCVL 10:50 → 1SOBS 12:46 → CATHCVL 21:56
PROVIDERS: ATTEND Internal Medicine Interventional Cardiology
DX: I25.10 Atherosclerotic heart disease of native coronary artery without angina pectoris (principal); I10 Essential (primary) hypertension; Z72.0 Tobacco use; E78.5 Hyperlipidemia, unspecified; I48.0 Paroxysmal atrial fibrillation; Z95.5 Presence of coronary angioplasty implant and graft; Z79.01 Long term (current) use of anticoagulants; Z79.02 Long term (current) use of antithrombotics/antiplatelets; Z79.82 Long term (current) use of aspirin; Z79.899 Other long term (current) drug therapy
CPT/HCPCS: 93460; 85018; 82810; 85610; C1760; C1894 ×2; C1769; J2001; J3010; Q9967 ×2; 93453

== ENCOUNTER → 2019-01-22 | Outpatient (CLI) | payer OTHER ==
--- NOTE | 2019-01-22 11:07 | US ---
EXAMINATION TYPE: US kidneys/renal and bladder DATE OF EXAM: 01/22/2019 COMPARISON: NONE CLINICAL HISTORY: R94.4 Abnormal Kidney function study. EXAM MEASUREMENTS: Right Kidney: 11.6 x 6.6 x 6.2 cm Left Kidney: 11.7 x 6.2x 5.8 cm Post Void Residual Volume: 2.9 mL Right Kidney: mid pole simple cyst near cortex = 0.9 x 1.2 x 0.9cm; crescent shaped hypoechoic area s een adjacent to mid lower cortex suggests sonographic"sweat sign" (renal failure) Left Kidney: No hydronephrosis or masses seen; smaller crescent shaped hypoechoic area seen adjacent to mid lower cortex suggests sonographic"sweat sign" (renal failure). Bladder: not fully prepped Bilateral Jets seen: not seen after 3 minute observation Normal Post Void Residual: yes There is no evidence for hydronephrosis at this point in time. Sequela No nephrolithiasis is seen. Th e urinary bladder is anechoic. IMPRESSION: 1. There is suggestion of the sonographic "sweat sign", which suggests renal failure. 2. No hydronephrosis or nephrolithiasis. 3. 1.2 cm simple appearing right cortical renal cyst in the midpole. 4. No sonographic evidence of hydronephrosis.
== END | disposition home or self-care (01) ==
LOC: RADUSWWP 08:54
PROVIDERS: ATTEND Family Medicine
DX: N28.1 Cyst of kidney, acquired (principal)
CPT/HCPCS: 76770

== ENCOUNTER → 2020-04-17 | Outpatient (CLI) | payer MEDICARE | END | disposition home or self-care (01) | LOC: LABPAT 08:10 | PROVIDERS: ATTEND Surgery | DX: Z20.828 Contact with and (suspected) exposure to other viral communicable diseases (principal) | CPT/HCPCS: U0003; C9803 ==

== ENCOUNTER → 2020-04-24 | Day surgery (SDC) | payer MEDICARE ==
[~2020-04-24] MED LIST changes: -ALPRAZolam 0.25 MG TAB PO PRN; -ASPIRIN 325 MG TAB PO ONE; +LACTATED RINGERS 1,000 ML IV ONE; +LACTATED RINGERS 1,000 ML IV SCH; +LIDOCAINE 1% (10MG/ML) FOR IV START INTRADERMA PRN; +LIDOCAINE 1% INJ 10MG/ML (20 ML MDV) ONE; -NITROGLYCERIN SL TABS 0.4 MG TAB SUBLINGUAL PRN; +PHENYLEPHRINE-0.9% NACL SYG 1 MG/10 ML SYRINGE ONE; +PROPOFOL 10 MG/ML 20 ML VIAL IV ONE; -SODIUM CHLORIDE 0.9% 1,000 ML in EMPTY BAG 1 BAG IV ONE; +fentaNYL (PF) 50 MCG/ML 2 ML AMP ONE
[2020-04-24 08:29] VITALS: TEMP 98.5
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
--- NOTE | 2020-04-24 09:39 | P.PCN ---
Date of Procedure: 04/24/20 Preoperative Diagnosis: Screening Postoperative Diagnosis: Diverticulosis Sigmoid colon polyp Rectal Polyps Procedure(s) Performed: Colonoscopy with hot snare polypectomy Surgeon: Angela Victoria Pathology: other (Polyps of the sigmoid colon, proximal rectum and distal rectum) Condition: stable Disposition: same day Indications for Procedure: 75-year-old male presents for screening colonoscopy. His last one has been is greater than 10 years ago. He was excellent the risks, benefits and alternatives to the procedure. He did provide consent prior to attending the endoscopy suite. Operative Findings: Multiple colon polyps. Polyp of the sigmoid colon, proximal rectum and 3 polyps of the distal rectum. Significant amount of large diverticulosis. Description of Procedure: The patient was brought into the endoscopy suite and placed in left lateral decubitus position. Adequate sedation was achieved using conscious sedation. A digital rectal exam was performed and mild internal hemorrhoid for palpated. An endoscope was then placed in the rectum and advanced to the cecum as identified by landmarks including the appendiceal orifice and the ileocecal valve. The prep was good. The colonoscope was then slowly withdrawn, examining for any mucosal and modalities. The cecum, ascending, transverse, descending and sigmoid colon were visualized adequately. There were no large neoplastic lesions noted throughout the colon. Multiple polyps were found. A polyp was noted in the sigmoid colon. This was removed with hot snare polypectomy. Additional polyp was noted in the proximal rectum. This was also removed with hot snare polypectomy. 3 polyps were noted in the distal rectum. These 3 were removed with hot snare polypectomy. There was significant evidence of large diverticulosis throughout the sigmoid colon. Retroflexion was performed in the rectum and mild internal hemorrhoids were visible. Excess air was removed, the colonoscope withdrawn and the procedure terminated. The patient was then transferred to the recovery unit in stable condition. Repeat colonoscopy should be completed in 3 years
[2020-04-24 10:12] VITALS: BP 111/60; PULSE 59; RESP 17
== END | disposition home or self-care (01) ==
LOC: ORWHC2ENDO 08:02
PROVIDERS: ATTEND Surgery
DX: Z12.11 Encounter for screening for malignant neoplasm of colon (principal); K57.30 Diverticulosis of large intestine without perforation or abscess without bleeding; K63.5 Polyp of colon; K62.1 Rectal polyp; K64.8 Other hemorrhoids; K63.3 Ulcer of intestine; K51.40 Inflammatory polyps of colon without complications; I48.91 Unspecified atrial fibrillation; I25.10 Atherosclerotic heart disease of native coronary artery without angina pectoris; H91.90 Unspecified hearing loss, unspecified ear; E78.5 Hyperlipidemia, unspecified; I25.2 Old myocardial infarction; I83.90 Asymptomatic varicose veins of unspecified lower extremity; I10 Essential (primary) hypertension; N40.0 Benign prostatic hyperplasia without lower urinary tract symptoms; E66.01 Morbid (severe) obesity due to excess calories; Z98.890 Other specified postprocedural states; Z87.01 Personal history of pneumonia (recurrent); Z85.828 Personal history of other malignant neoplasm of skin; Z95.5 Presence of coronary angioplasty implant and graft; Z90.89 Acquired absence of other organs; Z87.828 Personal history of other (healed) physical injury and trauma; Z87.81 Personal history of (healed) traumatic fracture; Z87.891 Personal history of nicotine dependence; Z79.899 Other long term (current) drug therapy; Z79.02 Long term (current) use of antithrombotics/antiplatelets; Z79.01 Long term (current) use of anticoagulants; Z97.2 Presence of dental prosthetic device (complete) (partial); Z68.41 Body mass index [BMI] 40.0-44.9, adult; Z95.0 Presence of cardiac pacemaker; Z82.49 Family history of ischemic heart disease and other diseases of the circulatory system; Z80.3 Family history of malignant neoplasm of breast; Z80.8 Family history of malignant neoplasm of other organs or systems
CPT/HCPCS: 88305; 45385; J2001; J3010; J2370; J2704; 45380